=== PATIENT | female | born 1960 | race Caucasian/White ===

== ENCOUNTER 2018-03-29 21:59 | Emergency (ER) | payer MEDICARE, OTHER ==
[2018-03-29] MEDS: OXYMETAZOLINE 0.05% NASAL SPRAY 30ML BOTTLE. NS (23:03)
[2018-03-29 23:18] LABS: ADD MAN DIFF? NO
[2018-03-29 23:20] LABS: BASO # 0.2 x10^3/uL (0.0-0.2); BASO % 1 % (0-3); EOS # 0.3 x10^3/uL (0.0-0.7); EOS % 2 % (0-3); HEMATOCRIT 42.9 % (36.0-47.0); LYMPH # 2.6 x10^3/uL (1.0-4.8); LYMPH % 18 % (24-48); MEAN CORPUSCULAR HEMOGLOBIN 31 pg (25-35); MEAN CORPUSCULAR HGB CONC 35 g/dL (31-37); MEAN CORPUSCULAR VOLUME 90 fL (79-100); MONO # 1.1 x10^3/uL (0.0-1.1); MONO % 8 % (0-9); NEUT # 10.5 x10^3uL (1.8-7.7); NEUT % 71 % (31-73); PLATELET COUNT 317 x10^3/uL (140-400); RED BLOOD COUNT 4.77 x10^6/uL (3.50-5.40); RED CELL DISTRIBUTION WIDTH 13.5 % (11.5-14.5); WHITE BLOOD COUNT 14.7 x10^3/uL (4.0-11.0)
[2018-03-29 23:32] LABS: PROTHROMBIN TIME PATIENT 12.4 SEC (11.7-14.0)
[2018-03-29 23:33] LABS: ANION GAP 10 (6-14); BLOOD UREA NITROGEN 7 mg/dL (7-20); BUN/CREATININE RATIO 9 (6-20); CALCIUM 8.5 mg/dL (8.5-10.1); CARBON DIOXIDE 28 mmol/L (21-32); CHLORIDE 91 mmol/L (98-107); CREATININE 0.8 mg/dL (0.6-1.0); GFR 73.7; GLUCOSE 100 mg/dL (70-99); POTASSIUM 3.5 mmol/L (3.5-5.1); SODIUM 129 mmol/L (136-145)
[2018-03-29 23:39] LABS: ALBUMIN 2.8 g/dL (3.4-5.0); ALBUMIN/GLOBULIN RATIO 0.7 (1.0-1.7); ALK PHOS 109 U/L (46-116); ALT (SGPT) 25 U/L (14-59); AST (SGOT) 23 U/L (15-37); TOTAL BILIRUBIN 0.6 mg/dL (0.2-1.0); TOTAL PROTEIN 6.6 g/dL (6.4-8.2)
== END 2018-03-30 00:10 | disposition home or self-care (01) ==
LOC: ER 03-30 00:10
DX: R04.0 Epistaxis (principal); E11.9 Type 2 diabetes mellitus without complications; E78.00 Pure hypercholesterolemia, unspecified; F20.9 Schizophrenia, unspecified; I10 Essential (primary) hypertension; F43.10 Post-traumatic stress disorder, unspecified; Z95.1 Presence of aortocoronary bypass graft; Z88.0 Allergy status to penicillin; Z88.1 Allergy status to other antibiotic agents
CPT/HCPCS: 36415; 80053; 85025; 85610; 99284

== ENCOUNTER 2019-08-30 04:24 | Inpatient (IN) | payer MEDICARE ==
[~2019-08-30] VITALS: Ht 152.4 cm; Wt 74.4 kg
[~2019-08-30 04:24] MED LIST: ALPR0.254 PO; AMLO10TA8 PO; ASPI-630 PO; ASPI325T8 PO; ATOR20TA58 PO; BUPR100T8 PO; CALC600T4 PO; FERR325T3 PO; FISH1CAP PO; HALO2TAB PO; LEXAPRO20 MG PO; LOSA100T14 PO; METF500T16 PO; MULT-658 PO; TRAZ-86 PO; VITA-8 PO; ZIPR20CA3 PO; ZIPR60CA3 PO
--- NOTE | 2019-08-30 05:05 | RAD ---
EXAM: CT HEAD WITHOUT CONTRAST. HISTORY: Altered mental status. TECHNIQUE: Computed tomography of the head was performed without intravenous contrast. COMPARISON: 11/14/2016. FINDINGS: There is no intracranial hemorrhage. Hypoattenuation within the periventricular white matter indicates mild chronic microangiopathic change. Prominence of the lateral ventricles and hemispheric sulci indicates mild atrophy. The visualized paranasal sinuses appear clear. The orbits are unremarkable. The temporal bones are unremarkable. The calvarium reveals no suspicious lesions. There are atherosclerotic calcifications of the internal carotid arteries. IMPRESSION: 1. No acute intracranial findings. 2. Mild atrophy and chronic microangiopathic white matter change. *One or more of the following individualized dose reduction techniques were utilized for this examination: 1. Automated exposure control. 2. Adjustment of the mA and/or kV according to patient size. 3. Use of iterative reconstruction technique. Electronically signed by: Hazel Salinas MD (08/30/2019 5:03 AM) [facility]
--- NOTE | 2019-08-30 05:45 | RAD ---
EXAM: CHEST ONE VIEW. HISTORY: Altered mental status. COMPARISON: 11/14/2016. FINDINGS: A frontal view of the chest is obtained. There are changes of coronary artery bypass grafting. There are no confluent infiltrates. There is no pneumothorax or pleural effusion. The heart is moderately enlarged. There are atherosclerotic calcifications of the aorta. IMPRESSION: 1. Mild to moderate cardiomegaly. Electronically signed by: Hazel Salinas MD (08/30/2019 5:43 AM) [facility]
[2019-08-30 05:48] LABS: CALCIUM 9.8 mg/dL (8.5-10.1); CREATININE 0.9 mg/dL (0.6-1.0); GFR 64.1; POTASSIUM 3.3 mmol/L (3.5-5.1)
--- NOTE | 2019-08-30 05:52 | PHYS DOC ---
Past Medical History Past Medical History: Anxiety, Depression, Diabetes-Type II, High Cholesterol, Hypertension, Schizophrenia, Stroke, Other Additional Past Medical Histor: INVOLUNTARY MUSCLE MOVEMENT, CERVICAL CANCER, PTSD Past Surgical History: No Surgical History, Coronary Bypass Surgery Alcohol Use: None Drug Use: None Adult General Chief Complaint Chief Complaint: ALTERED [facility]AL [facility] HPI Patient is a 58-year-old female with anxiety, depression and post dramatic stress disorder who is also had a CVA in the past. Patient's son states she called him at 1 AM since she didn't feel right and he noted that she was having an increased difficulty talking. He states that 2 days ago he had a conversation with her that was normal but he noticed some changes yesterday. Patient is not cooperative with answering questions during the history taking.[] Review of Systems Review of Systems Constitutional: Denies fever or chills [] Eyes: Denies change in visual acuity, redness, or eye pain [] HENT: Denies nasal congestion or sore throat [] Respiratory: Denies cough or shortness of breath [] Cardiovascular: No additional information not addressed in HPI [] GI: Denies abdominal pain, nausea, vomiting, bloody stools or diarrhea [] : Denies dysuria or hematuria [] Musculoskeletal: Denies back pain or joint pain [] Integument: Denies rash or skin lesions [] Neurologic: Denies headache, focal weakness or sensory changes [] Endocrine: Denies polyuria or polydipsia [] All other systems were reviewed and found to be within normal limits, except as documented in this note. Current Medications Current Medications Current Medications Medications (Trade) Dose Ordered Sig/[facility] Start Time Stop Time Status Last Admin Dose Admin Acetaminophen (Tylenol) 650 mg PRN Q4HRS PRN 08/30/19 06:00 08/31/19 05:59 Ondansetron HCl (Zofran) 4 mg PRN Q8HRS PRN 08/30/19 06:00 08/31/19 05:59 Sodium Chloride 1,000 ml @ 125 mls/hr Q8H 08/30/19 06:00 08/31/19 05:59 Allergies Allergies Allergies Coded Allergies Type Severity Reaction Last Updated Verified Penicillins Allergy Intermediate 11/05/16 Yes doxycycline Allergy Intermediate 11/05/16 Yes tetracycline Allergy Intermediate 11/05/16 Yes Physical Exam Physical Exam Constitutional: Well developed, well nourished, no acute distress, non-toxic appearance. [] HENT: Normocephalic, atraumatic, bilateral external ears normal, oropharynx moist, no oral exudates, nose normal. [] Eyes: PERRLA, EOMI, conjunctiva normal, no discharge. [] Neck: Normal range of motion, no tenderness, supple, no stridor. [] Cardiovascular:Heart rate regular rhythm, no murmur [] Lungs & Thorax: Bilateral breath sounds clear to auscultation [] Abdomen: Bowel sounds normal, soft, no tenderness, no masses, no pulsatile masses. [] Skin: Warm, dry, no erythema, no rash. [] Back: No tenderness, no CVA tenderness. [] Extremities: No tenderness, no cyanosis, no clubbing, ROM intact, no edema. [] Neurologic: Patient is awake and alert with a subtle expressive aphasia. [] Psychologic: Very flat affect[] Current Patient Data Vital Signs Vital Signs Date Time Temp Pulse Resp B/P (MAP) Pulse Ox O2 Delivery O2 Flow Rate FiO2 08/30/19 04:30 98.0 86 20 156/69 (98) 96 Room Air 98.0 Lab Values Laboratory Tests Test 08/30/19 04:55 08/30/19 05:05 Glucose (Fingerstick) 136 mg/dL (70-99) H Sodium Level 133 mmol/L (136-145) L Potassium Level 3.3 mmol/L (3.5-5.1) L Chloride Level 92 mmol/L (98-107) L Carbon Dioxide Level 26 mmol/L (21-32) Anion Gap 15 (6-14) H Blood Urea Nitrogen 6 mg/dL (7-20) L Creatinine 0.9 mg/dL (0.6-1.0) Estimated GFR (Cockcroft-Gault) 64.1 BUN/Creatinine Ratio 7 (6-20) Glucose Level 130 mg/dL (70-99) H Lactic Acid Level 1.2 mmol/L (0.4-2.0) Calcium Level 9.8 mg/dL (8.5-10.1) Magnesium Level 1.3 mg/dL (1.8-2.4) L Total Bilirubin 0.5 mg/dL (0.2-1.0) Aspartate Amino Transferase (AST) 20 U/L (15-37) Alanine Aminotransferase (ALT) 18 U/L (14-59) Alkaline Phosphatase 115 U/L (46-116) Troponin I Quantitative < 0.017 ng/mL (0.000-0.055) Total Protein 6.5 g/dL (6.4-8.2) Albumin 3.2 g/dL (3.4-5.0) L Albumin/Globulin Ratio 1.0 (1.0-1.7) Lipase 126 U/L (73-393) Thyroid Stimulating Hormone (TSH) 3.082 uIU/mL (0.358-3.74) Ethyl Alcohol Level < 10 mg/dL (0-10) Laboratory Tests 08/30/19 05:05 EKG EKG [] Interpretation Time: EKG: Normal sinus rhythm rate of [address]-T changes Radiology/Procedures Radiology/Procedures [PROCEDURE: CHEST AP ONLY EXAM: CHEST ONE VIEW. HISTORY: Altered mental status. COMPARISON: 11/14/2016. FINDINGS: A frontal view of the chest is obtained. There are changes of coronary artery bypass grafting. There are no confluent infiltrates. There is no pneumothorax or pleural effusion. The heart is moderately enlarged. There are atherosclerotic calcifications of the aorta. IMPRESSION: 1. Mild to moderate cardiomegaly.] Impressions: PROCEDURE: CT HEAD WO CONTRAST EXAM: CT HEAD WITHOUT CONTRAST. HISTORY: Altered mental status. TECHNIQUE: Computed tomography of the head was performed without intravenous contrast. COMPARISON: 11/14/2016. FINDINGS: There is no intracranial hemorrhage. Hypoattenuation within the periventricular white matter indicates mild chronic microangiopathic change. Prominence of the lateral ventricles and hemispheric sulci indicates mild atrophy. The visualized paranasal sinuses appear clear. The orbits are unremarkable. The temporal bones are unremarkable. The calvarium reveals no suspicious lesions. There are atherosclerotic calcifications of the internal carotid arteries. IMPRESSION: 1. No acute intracranial findings. 2. Mild atrophy and chronic microangiopathic white matter change. Course & Med Decision Making Course & Med Decision Making Pertinent Labs and Imaging studies reviewed. (See chart for details) [ED course: Evaluation reveals a 58-year-old female with symptoms likely related to anxiety however she does have a component of expressive aphasia which is concerning for new subtle ischemic CVA. Her CT scan was negative. I would like to put the patient in the hospital for MRI and further workup. I've talked with Dr. Giordano who agrees to accept patient for admission.] Dragon Disclaimer Dragon Disclaimer This electronic medical record was generated, in whole or in part, using a voice recognition dictation system. Departure Departure Impression: Primary Impression: Ischemic stroke Additional Impression: AMS (altered mental status) Disposition: 09 ADMITTED INPATIENT Condition: STABLE Referrals: NO PCP (PCP) Problem Qualifiers Additional Impression: AMS (altered mental status) Altered mental status type: unspecified Qualified Codes: R41.82 - Altered mental status, unspecified ALMA ROSA ROMAN DO Aug 30, 2019 05:52
[2019-08-30 05:59] LABS: ALBUMIN 3.2 g/dL (3.4-5.0); MAGNESIUM 1.3 mg/dL (1.8-2.4); TOTAL BILIRUBIN 0.5 mg/dL (0.2-1.0); TOTAL PROTEIN 6.5 g/dL (6.4-8.2)
[2019-08-30] MEDS ORDERED: ACETAMINOPHEN 325 MG TABLET. PO PRN (06:00)
[2019-08-30] MEDS ORDERED: ONDANSETRON PF 4 MG/2 ML VIAL. IV PRN (06:00)
[2019-08-30 06:01] LABS: BILIRUBIN,URINE NEGATIVE (NEG); CLARITY,URINE CLEAR; COLOR,URINE YELLOW; NITRITE,URINE NEGATIVE (NEG); PROTEIN,URINE >=300 mg/dL (NEG-TRACE)
[2019-08-30 06:04] LABS: BASO # 0.1 x10^3/uL (0.0-0.2); BASO % 1 % (0-3); EOS # 0.1 x10^3/uL (0.0-0.7); EOS % 1 % (0-3); HEMATOCRIT 44.6 % (36.0-47.0); HEMOGLOBIN 15.2 g/dL (12.0-15.5); LYMPH # 1.2 x10^3/uL (1.0-4.8); LYMPH % 12 % (24-48); MEAN CORPUSCULAR HEMOGLOBIN 30 pg (25-35); MEAN CORPUSCULAR HGB CONC 34 g/dL (31-37); MEAN CORPUSCULAR VOLUME 89 fL (79-100); MONO # 0.7 x10^3/uL (0.0-1.1); MONO % 7 % (0-9); NEUT % 79 % (31-73); PLATELET COUNT 363 x10^3/uL (140-400); RED CELL DISTRIBUTION WIDTH 14.6 % (11.5-14.5); WHITE BLOOD COUNT 10.1 x10^3/uL (4.0-11.0)
[2019-08-30 06:11] LABS: BARBITURATES NEG (NEG); BENZODIAZEPINES NEG (NEG); CANNABINOIDS NEG (NEG); COCAINE NEG (NEG); METHADONE NEG (NEG); OPIATES NEG (NEG); PHENCYCLIDINE NEG (NEG)
[2019-08-30 06:13] LABS: AMPHETAMINE/METHAMPHETAMINE NEG (NEG)
[2019-08-30 06:18] LABS: BACTERIA,URINE FEW /HPF (0-FEW); RBC,URINE 0 /HPF (0-2); SQUAMOUS EPITHELIAL CELL,UR FEW /LPF
--- NOTE | 2019-08-30 06:48 | EKG ---
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
[2019-08-30 07:15] VITALS: BP 163/79
--- NOTE | 2019-08-30 07:15 | PDOC1 ---
History and Physical Date of Admission Date of Admission DATE: 08/30/19 TIME: 07:14 Identification/Chief Complaint Chief Complaint SEEN IN ER, 58-year-old female with anxiety, depression and post dramatic stress disorder who is also had a CVA in the past. Patient's son states she called him at 1 AM since she didn't feel right and he noted that she was having an increased difficulty talking. ADMITTED WITH ALTERED MENTATION, NOT ABLE TO NAME CORRECT DAY, Normally drives, shops etc, new on set confusion, no tick or known mosquito bites according to daughter in room Past Medical History Past Medical History Past Medical History Past Medical History: Anxiety, Depression, Diabetes-Type II, High Cholesterol, Hypertension, Schizophrenia, Stroke, Other Additional Past Medical Histor: INVOLUNTARY MUSCLE MOVEMENT, CERVICAL CANCER, PTSD Past Surgical History: No Surgical History, Coronary Bypass Surgery Alcohol Use: None Drug Use: None fhx htn PAST MEDICAL HISTORY: Tobacco abuse, TIAs, hyperlipidemia, hypertension, osteoporosis, diabetes. ALLERGIES: PENICILLIN, DOXYCYCLINE, AND TETRACYCLINE. FAMILY HISTORY: Coronary artery disease. SOCIAL HISTORY: She does not drink or take drugs. Family History Family History: High Cholestrol, Hypertension Social History Smoke: No ALCOHOL: none Drugs: None Current Problem List Problem List Problems Medical Problems: (1) Ischemic stroke Status: Acute Current Medications Current Medications Current Medications Ondansetron HCl (Zofran) 4 mg PRN Q8HRS PRN IV NAUSEA/VOMITING 1ST CHOICE; Start 08/30/19 at 06:00; Stop 08/31/19 at 05:59 Sodium Chloride 1,000 ml @ 125 mls/hr Q8H IV ; Start 08/30/19 at 06:00; Stop 08/31/19 at 05:59 Acetaminophen (Tylenol) 650 mg PRN Q4HRS PRN PO FEVER; Start 08/30/19 at 06:00; Stop 08/31/19 at 05:59 Active Scripts Active Aspirin 325 Mg Tablet 1 Tab PO DAILY Reported Ziprasidone Hcl 20 Mg Capsule 20 Mg PO HS Lexapro (Escitalopram Oxalate) 20 Mg Tablet 1 Tab PO DAILY Bupropion Hcl Sr (Bupropion Hcl) 100 Mg Tablet.er 100 Mg PO HS Haloperidol 2 Mg Tablet 5 Tab PO DAILY Ziprasidone Hcl 60 Mg Capsule 120 Mg PO HS Trazodone Hcl 100 Mg Tablet 150 Mg PO HS Fish Oil 1,200 Mg Fish Oil (Fish Oil/Dha/Epa) 1 Each Capsule 2 Each PO DAILY Centrum Silver Tablet (Multivits-Min/Fa/Lycopene/Lut) 1 Each Tablet 1 Each PO DAILY Alprazolam 0.25 Mg Tablet 3 Tab PO TID Ferrous Sulfate 325 Mg Tablet.dr 325 Mg PO Atorvastatin Calcium 20 Mg Tablet 20 Mg PO HS Calcium (Calcium Carbonate) 600 Mg Tablet 600 Mg PO DAILY Metformin Hcl 500 Mg Tablet 2 Tab PO DAILY Losartan Potassium 100 Mg Tablet 100 Mg PO DAILY Vitamin E (Vitamin E Mixed) 400 Unit Capsule 400 Unit PO DAILY Amlodipine Besylate 10 Mg Tablet 10 Mg PO DAILY Allergies Allergies: Coded Allergies: Penicillins (Verified Allergy, Intermediate, 11/05/16) doxycycline (Verified Allergy, Intermediate, 11/05/16) tetracycline (Verified Allergy, Intermediate, 11/05/16) ROS Review of System Review of Systems Review of Systems Constitutional: Denies fever or chills [] Eyes: Denies change in visual acuity, redness, or eye pain [] HENT: Denies nasal congestion or sore throat [] Respiratory: Denies cough or shortness of breath [] Cardiovascular: No additional information not addressed in HPI [] GI: Denies abdominal pain, nausea, vomiting, bloody stools or diarrhea [] : Denies dysuria or hematuria [] Musculoskeletal: Denies back pain or joint pain [] Integument: Denies rash or skin lesions [] Neurologic: Denies headache, focal weakness or sensory changes [] Endocrine: Denies polyuria or polydipsia [] 14 PT systems were reviewed and found to be within normal limits, except as documented General: YES: Fatigue PSYCHOLOGICAL ROS: YES: Disorientation, Memory difficulties Hematological and Lymphatic: No: Bleeding Problems, Blood Clots, Blood Transfusions, Brusing, Night Sweats, Pallor, Swollen Lymph Nodes, Other Respiratory: No: Cough, Hemoptysis, Orthopnea, Pleuritic Pain, Shortness of breath, SOB with excertion, Sputum Changes, Stridor, Tachypnea, Wheezing, Other Neurological: Yes Confusion Physical Exam Physical Exam Physical Exam Physical Exam Constitutional: Well developed, well nourished, no acute distress, non-toxic appearance. [] HENT: Normocephalic, atraumatic, bilateral external ears normal, oropharynx moist, no oral exudates, nose normal. [] Eyes: PERRLA, EOMI, conjunctiva normal, no discharge. [] Neck: Normal range of motion, no tenderness, supple, no stridor. [] Cardiovascular:Heart rate regular rhythm, no murmur [] Lungs & Thorax: Bilateral breath sounds clear to auscultation [] Abdomen: Bowel sounds normal, soft, no tenderness, no masses, no pulsatile sammi s. [] Skin: Warm, dry, no erythema, no rash. [] Back: No tenderness, no CVA tenderness. [] Extremities: No tenderness, no cyanosis, no clubbing, ROM intact, no edema. [] Neurologic: Patient is awake and alert with a subtle expressive aphasia. [] Psychologic: Very flat affect[] General: Cooperative, No acute distress HEENT: Atraumatic, EOMI, Mucous membr. moist/pink Lungs: Clear to auscultation Breasts: Not examined Abdomen: Normal bowel sounds, Soft Rectal Exam: not examined Extremities: No cyanosis, No edema Neuro: Cranial nerves 3-12 NL Vitals Vitals Vital Signs Date Time Temp Pulse Resp B/P (MAP) Pulse Ox O2 Delivery O2 Flow Rate FiO2 08/30/19 06:17 98 21 95 08/30/19 04:30 98.0 156/69 (98) Room Air 98.0 Labs Labs Laboratory Tests Test 08/30/19 04:55 08/30/19 05:05 08/30/19 05:48 Glucose (Fingerstick) 136 mg/dL (70-99) White Blood Count 10.1 x10^3/uL (4.0-11.0) Red Blood Count 5.00 x10^6/uL (3.50-5.40) Hemoglobin 15.2 g/dL (12.0-15.5) Hematocrit 44.6 % (36.0-47.0) Mean Corpuscular Volume 89 fL (79-100) Mean Corpuscular Hemoglobin 30 pg (25-35) Mean Corpuscular Hemoglobin Concent 34 g/dL (31-37) Red Cell Distribution Width 14.6 % (11.5-14.5) Platelet Count 363 x10^3/uL (140-400) Neutrophils (%) (Auto) 79 % (31-73) Lymphocytes (%) (Auto) 12 % (24-48) Monocytes (%) (Auto) 7 % (0-9) Eosinophils (%) (Auto) 1 % (0-3) Basophils (%) (Auto) 1 % (0-3) Neutrophils # (Auto) 8.0 x10^3/uL (1.8-7.7) Lymphocytes # (Auto) 1.2 x10^3/uL (1.0-4.8) Monocytes # (Auto) 0.7 x10^3/uL (0.0-1.1) Eosinophils # (Auto) 0.1 x10^3/uL (0.0-0.7) Basophils # (Auto) 0.1 x10^3/uL (0.0-0.2) Sodium Level 133 mmol/L (136-145) Potassium Level 3.3 mmol/L (3.5-5.1) Chloride Level 92 mmol/L (98-107) Carbon Dioxide Level 26 mmol/L (21-32) Anion Gap 15 (6-14) Blood Urea Nitrogen 6 mg/dL (7-20) Creatinine 0.9 mg/dL (0.6-1.0) Estimated GFR (Cockcroft-Gault) 64.1 BUN/Creatinine Ratio 7 (6-20) Glucose Level 130 mg/dL (70-99) Lactic Acid Level 1.2 mmol/L (0.4-2.0) Calcium Level 9.8 mg/dL (8.5-10.1) Magnesium Level 1.3 mg/dL (1.8-2.4) Total Bilirubin 0.5 mg/dL (0.2-1.0) Aspartate Amino Transf (AST/SGOT) 20 U/L (15-37) Alanine Aminotransferase (ALT/SGPT) 18 U/L (14-59) Alkaline Phosphatase 115 U/L (46-116) Troponin I Quantitative < 0.017 ng/mL (0.000-0.055) Total Protein 6.5 g/dL (6.4-8.2) Albumin 3.2 g/dL (3.4-5.0) Albumin/Globulin Ratio 1.0 (1.0-1.7) Lipase 126 U/L (73-393) Thyroid Stimulating Hormone (TSH) 3.082 uIU/mL (0.358-3.74) Ethyl Alcohol Level < 10 mg/dL (0-10) Urine Collection Type Void Urine Color Yellow Urine Clarity Clear Urine pH 7.0 Urine Specific [place] <=1.005 Urine Protein >=300 mg/dL (NEG-TRACE) Urine Glucose (UA) Negative mg/dL (NEG) Urine Ketones (Stick) Trace mg/dL (NEG) Urine Blood Small (NEG) Urine Nitrite Negative (NEG) Urine Bilirubin Negative (NEG) Urine Urobilinogen Dipstick 1.0 mg/dL (0.2 mg/dL) Urine Leukocyte Esterase Small (NEG) Urine RBC 0 /HPF (0-2) Urine WBC 1-4 /HPF (0-4) Urine Squamous Epithelial Cells Few /LPF Urine Bacteria Few /HPF (0-FEW) Urine Opiates Screen Neg (NEG) Urine Methadone Screen Neg (NEG) Urine Barbiturates Neg (NEG) Urine Phencyclidine Screen Neg (NEG) Urine Amphetamine/Methamphetamine Neg (NEG) Urine Benzodiazepines Screen Neg (NEG) Urine Cocaine Screen Neg (NEG) Urine Cannabinoids Screen Neg (NEG) Urine Ethyl Alcohol Neg (NEG) Laboratory Tests Test 08/30/19 04:55 08/30/19 05:05 08/30/19 05:48 Glucose (Fingerstick) 136 mg/dL (70-99) White Blood Count 10.1 x10^3/uL (4.0-11.0) Red Blood Count 5.00 x10^6/uL (3.50-5.40) Hemoglobin 15.2 g/dL (12.0-15.5) Hematocrit 44.6 % (36.0-47.0) Mean Corpuscular Volume 89 fL (79-100) Mean Corpuscular Hemoglobin 30 pg (25-35) Mean Corpuscular Hemoglobin Concent 34 g/dL (31-37) Red Cell Distribution Width 14.6 % (11.5-14.5) Platelet Count 363 x10^3/uL (140-400) Neutrophils (%) (Auto) 79 % (31-73) Lymphocytes (%) (Auto) 12 % (24-48) Monocytes (%) (Auto) 7 % (0-9) Eosinophils (%) (Auto) 1 % (0-3) Basophils (%) (Auto) 1 % (0-3) Neutrophils # (Auto) 8.0 x10^3/uL (1.8-7.7) Lymphocytes # (Auto) 1.2 x10^3/uL (1.0-4.8) Monocytes # (Auto) 0.7 x10^3/uL (0.0-1.1) Eosinophils # (Auto) 0.1 x10^3/uL (0.0-0.7) Basophils # (Auto) 0.1 x10^3/uL (0.0-0.2) Sodium Level 133 mmol/L (136-145) Potassium Level 3.3 mmol/L (3.5-5.1) Chloride Level 92 mmol/L (98-107) Carbon Dioxide Level 26 mmol/L (21-32) Anion Gap 15 (6-14) Blood Urea Nitrogen 6 mg/dL (7-20) Creatinine 0.9 mg/dL (0.6-1.0) Estimated GFR (Cockcroft-Gault) 64.1 BUN/Creatinine Ratio 7 (6-20) Glucose Level 130 mg/dL (70-99) Lactic Acid Level 1.2 mmol/L (0.4-2.0) Calcium Level 9.8 mg/dL (8.5-10.1) Magnesium Level 1.3 mg/dL (1.8-2.4) Total Bilirubin 0.5 mg/dL (0.2-1.0) Aspartate Amino Transf (AST/SGOT) 20 U/L (15-37) Alanine Aminotransferase (ALT/SGPT) 18 U/L (14-59) Alkaline Phosphatase 115 U/L (46-116) Troponin I Quantitative < 0.017 ng/mL (0.000-0.055) Total Protein 6.5 g/dL (6.4-8.2) Albumin 3.2 g/dL (3.4-5.0) Albumin/Globulin Ratio 1.0 (1.0-1.7) Lipase 126 U/L (73-393) Thyroid Stimulating Hormone (TSH) 3.082 uIU/mL (0.358-3.74) Ethyl Alcohol Level < 10 mg/dL (0-10) Urine Collection Type Void Urine Color Yellow Urine Clarity Clear Urine pH 7.0 Urine Specific [place] <=1.005 Urine Protein >=300 mg/dL (NEG-TRACE) Urine Glucose (UA) Negative mg/dL (NEG) Urine Ketones (Stick) Trace mg/dL (NEG) Urine Blood Small (NEG) Urine Nitrite Negative (NEG) Urine Bilirubin Negative (NEG) Urine Urobilinogen Dipstick 1.0 mg/dL (0.2 mg/dL) Urine Leukocyte Esterase Small (NEG) Urine RBC 0 /HPF (0-2) Urine WBC 1-4 /HPF (0-4) Urine Squamous Epithelial Cells Few /LPF Urine Bacteria Few /HPF (0-FEW) Urine Opiates Screen Neg (NEG) Urine Methadone Screen Neg (NEG) Urine Barbiturates Neg (NEG) Urine Phencyclidine Screen Neg (NEG) Urine Amphetamine/Methamphetamine Neg (NEG) Urine Benzodiazepines Screen Neg (NEG) Urine Cocaine Screen Neg (NEG) Urine Cannabinoids Screen Neg (NEG) Urine Ethyl Alcohol Neg (NEG) Images Images BRAIN W/O CONTRAST Date: 08/30/2019 5:52 AM Indication: CVA. Altered mental status. Comparison: MRI 11/14/2016. CT 08/30/2019. Technique: Multiplanar multisequence MRI of the brain was performed without intravenous contrast using the standard protocol. Findings: Patient motion artifact degrades image quality on some sequences. No acute infarct. No acute hemorrhage. The ventricles are normal in size and configuration without hydrocephalus. Mild scattered FLAIR hyperintensities in the subcortical and periventricular deep white matter, a nonspecific finding, most commonly seen with chronic small vessel ischemic disease. Mild generalized cerebral and cerebellar volume loss. The scalp and calvarium are normal. The pituitary and sella are normal. No Chiari malformation. The visualized upper cervical spine is normal. The visualized orbits and globes are normal. The visualized paranasal sinuses are clear. The mastoid air cells are clear. Normal flow voids within the vertebral, basilar, and internal carotid arteries indicating patency. IMPRESSION: No acute infarct, acute hemorrhage, mass, or hydrocephalus. Electronically signed by: Francisco Coronel MD (08/30/2019 9:56 AM) [facility] DICTATED and SIGNED BY: FRANCISCO CORONEL MD DATE: 08/30/19 0956 VTE Prophylaxis Ordered VTE Prophylaxis Devices: Yes VTE Pharmacological Prophylaxi: Yes Assessment/Plan Assessment/Plan IMPRESSION: ACUTE ALTERED MENTATION acute metabolic encephalopathy possible uti No acute infarct, acute hemorrhage, mass, or hydrocephalus. Mild CEREBRAL atrophy and chronic microangiopathic white matter change. ON CT HEAD OBESITY hx schizophrenia, possible acute psychosis ADMIT NEUROLOGY CONSULT NEUROCHECKS Q 4 HRS ADMIT 2 MN TELE EEG uds blood culture urine culture dvt prophylaxis hold geodon and sedating meds IV CIPRO 200MG BID 74 min pt exam, chart review, > 50% of time spent with exam, chart review, pt care coordination MAXIME ALMODOVAR MD Aug 30, 2019 07:15
[2019-08-30] MEDS ORDERED: FISH1CAP PO (09:36)
[2019-08-30] MEDS ORDERED: BUPR150T15 PO (09:36)
[2019-08-30] MEDS ORDERED: CARV6.253 PO (09:36)
[2019-08-30] MEDS ORDERED: RISP0.5T3 PO (09:36)
[2019-08-30] MEDS ORDERED: AMIT25TA PO (09:36)
[2019-08-30] MEDS ORDERED: HALO5TAB PO (09:36)
--- NOTE | 2019-08-30 09:59 | RAD ---
BRAIN W/O CONTRAST Date: 08/30/2019 5:52 AM Indication: CVA. Altered mental status. Comparison: MRI 11/14/2016. CT 08/30/2019. Technique: Multiplanar multisequence MRI of the brain was performed without intravenous contrast using the standard protocol. Findings: Patient motion artifact degrades image quality on some sequences. No acute infarct. No acute hemorrhage. The ventricles are normal in size and configuration without hydrocephalus. Mild scattered FLAIR hyperintensities in the subcortical and periventricular deep white matter, a nonspecific finding, most commonly seen with chronic small vessel ischemic disease. Mild generalized cerebral and cerebellar volume loss. The scalp and calvarium are normal. The pituitary and sella are normal. No Chiari malformation. The visualized upper cervical spine is normal. The visualized orbits and globes are normal. The visualized paranasal sinuses are clear. The mastoid air cells are clear. Normal flow voids within the vertebral, basilar, and internal carotid arteries indicating patency. IMPRESSION: No acute infarct, acute hemorrhage, mass, or hydrocephalus. Electronically signed by: Julio Herrera MD (08/30/2019 9:56 AM) [facility]
[2019-08-30 11:03] VITALS: BP 156/71
[2019-08-30] MEDS ORDERED: POTASSIUM CHLORIDE 20 MEQ TABLET.ER. PO ONE (13:00)
[2019-08-30 15:15] VITALS: BP 153/96
[2019-08-30] MEDS: OMEGA-3 FATTY ACIDS/FISH OIL 1,000 MG CAPSULE. PO SCH ×2 (15:26→21:22)
[2019-08-30] MEDS: VITAMIN E 200 UNIT CAPSULE. PO SCH (15:26)
[2019-08-30] MEDS: amLODIPine BESYLATE 10 MG TABLET PO SCH (15:27)
[2019-08-30] MEDS: IRON POLYSACCHARIDE COMPLEX 150 MG CAPSULE PO SCH (15:27)
[2019-08-30] MEDS: ASPIRIN 325 MG TABLET PO SCH (15:27)
[2019-08-30] MEDS: CALCIUM CARBONATE 500 MG TABLET PO SCH (15:28)
[2019-08-30] MEDS: MULTIVITAMIN with MINERAL TABLET. PO SCH (15:28)
[2019-08-30] MEDS: LOSARTAN POTASSIUM 50 MG TABLET. PO SCH (15:28)
[2019-08-30] MEDS: IV NORMAL SALINE 1000ML BAG 1,000 ML IV SCH (15:29)
[2019-08-30] MEDS: CIPROFLOXACIN 200MG PREMIX 100 ML IV SCH ×2 (15:29→21:22)
--- NOTE | 2019-08-30 17:49 | PDOC2 ---
NEUROLOGY CONSULT Date of Admission Date of Admission DATE: 08/30/19 TIME: 17:34 Reason for Consult Reason for Consult: IMPRESSION: Mental status changes. Confusion. Difficult talking. DM. HTN. HLD. Old CVA.. Smoking. Depression. Schizophrenia. No evidence of acute CVA this time. RECOMMENDATIONS/PLAN: EEG. Lab: see orders. Continue ASA 325 mg daily. Continue Lipitor HS. Treat medical diseases. HISTORY OF THE PRESENT ILLNESS: This is a 58-year-old female with anxiety, depression and post dramatic stress disorder and CVA in the past. Her son reported that patient called him at 1 AM stating she didn't feel right. He noted that she was having an increased difficulty talking. She was seen in the ER of [facility] and was found not able to name correctly with MS changes. No focalized sensory or motor deficits. Past Medical History Anxiety, Depression, Diabetes-Type II, High Cholesterol, Hypertension, Schizophrenia, Stroke, INVOLUNTARY MUSCLE MOVEMENT, CERVICAL CANCER, PTSD. PAST SURGERY HISTORY: Coronary Bypass Surgery ALLERGIES: PENICILLIN, DOXYCYCLINE, AND TETRACYCLINE. FAMILY HISTORY: Coronary artery disease. MEDICATIONS: Refer to [facility] SOCIAL HISTORY: Lives at home. Denies drinking and illicit drug use. She smokes 2 pack of cigarettes a day for many years. REVIEW OF SYSTEMS: Constitutional: No malnutrition, weight loss, cachexia. Head: No traumatic brain or head injury. Skin: No edema, or rash. Ear: No infection. Eyes: No vision loss or color blindness. Nose: No bleeding or purulent discharges. Hearing: No hearing decrease. Neck: No injury. Breast: No history of cancer, masses,or discharges. Cardiac: s/p CABG, HTN, HLD. Pulmonary: Smoking. GI: No GI ulcer, GI bleeding. Urinary/genital: UTI. Endocrinologic: Diabetes Mellitus. Skeletomuscular: No muscular atrophy. Neurological: see HP. Psychiatric: Denies drug use/abuse. Otherwise, not -azurv review of systems. PHYSICAL EXAMINATION: General appearance is in subacute distress. HEENT: Normocephalic and nontraumatic. Eyes, nose, ears, and throat are unremarkable. Neck is supple. No lymphadenopathy. No crepitus. Cardiovascular: S1, S2, regular rate and rhythm. Pulmonary: Clear to auscultation bilaterally. Abdomen: Bowel sounds are positive. Extremities: No rash, lesions, or edema. No restriction of range of motion NEUROLOGICAL EXAMINATION: Awake. Not oriented to time, place and person. PERRL. EOMI. CN: no focal findings. Muscle tone: within normal. Muscle strength: 5 DTR: 2 Plantar reflex: Flexor response bilaterally Gait: not examined in bed. Sensory exam: no abnormal findings. No cerebellar signs elicited. F-T-N test fine. Current Medications Current Medications Current Medications Ondansetron HCl (Zofran) 4 mg PRN Q8HRS PRN IV NAUSEA/VOMITING 1ST CHOICE; Start 08/30/19 at 06:00; Stop 08/31/19 at 05:59 Sodium Chloride 1,000 ml @ 125 mls/hr Q8H IV Last administered on 08/30/19at 15:29; Start 08/30/19 at 06:00; Stop 08/31/19 at 05:59 Acetaminophen (Tylenol) 650 mg PRN Q4HRS PRN PO FEVER; Start 08/30/19 at 06:00; Stop 08/31/19 at 05:59 Amlodipine Besylate (Norvasc) 10 mg DAILY PO Last administered on 08/30/19at 15:27; Start 08/30/19 at 13:30 Aspirin (Lauren Aspirin) 325 mg DAILY PO Last administered on 08/30/19at 15:27; Start 08/30/19 at 14:00 Atorvastatin Calcium (Lipitor) 20 mg HS PO ; Start 08/30/19 at 21:00 Bupropion HCl (Wellbutrin Xl) 150 mg HS PO ; Start 08/30/19 at 21:00 Carvedilol (Coreg) 6.25 mg BIDWMEALS PO ; Start 08/30/19 at 17:00 Ziprasidone (Geodon) 20 mg HS PO ; Start 08/30/19 at 21:00 Calcium Carbonate/ Glycine (Oscal) 500 mg DAILY PO Last administered on 08/30/19at 15:28; Start 08/30/19 at 14:00 Fish Oil (Fish Oil) 1,000 mg TID PO Last administered on 08/30/19at 15:26; Start 08/30/19 at 14:00 Non-Formulary Medication (Fish Oil/Dha/ Epa (Fish Oil 1,200 Mg Fish Oil)) 2 each DAILY PO ; Start 08/31/19 at 09:00; Stop 08/30/19 at 12:52; Status DC Losartan Potassium (Cozaar) 100 mg DAILY PO Last administered on 08/30/19at 15:28; Start 08/30/19 at 14:00 Multivitamins (Thera M Plus) 1 tab DAILY PO Last administered on 08/30/19at 15:28; Start 08/30/19 at 14:00 Vitamin E 400 unit DAILY PO Last administered on 08/30/19at 15:26; Start 08/30/19 at 14:00 Polysaccharide Iron Complex (Niferex 150) 150 mg DAILY PO Last administered on 08/30/19at 15:27; Start 08/30/19 at 14:00 Ciprofloxacin/ Dextrose 100 ml @ 100 mls/hr Q12HR IV Last administered on 08/30/19at 15:29; Start 08/30/19 at 13:00 Potassium Chloride (Klor-Con) 40 meq 1X ONCE PO Last administered on 08/30/19at 15:27; Start 08/30/19 at 13:00; Stop 08/30/19 at 13:01; Status DC Potassium Chloride (Klor-Con) 20 meq DAILYWBKFT PO ; Start 08/31/19 at 08:00 Lactobacillus Rhamnosus (Culturelle) 1 cap BID PO ; Start 08/30/19 at 21:00 Active Scripts Active Aspirin 325 Mg Tablet 1 Tab PO DAILY Reported Amitriptyline Hcl 25 Mg Tablet 1 Tab PO QHS Risperidone 0.5 Mg Tablet 1 Tab PO DAILY Carvedilol 6.25 Mg Tablet 6.25 Mg PO BID Fish Oil 1,200 Mg Fish Oil (Fish Oil/Dha/Epa) 1 Each Capsule 1 Each PO TID Haloperidol 5 Mg Tablet 3 Tab PO DAILY Wellbutrin Xl (Bupropion Hcl) 150 Mg Tab.er.24h 1 Tab PO HS Ziprasidone Hcl 20 Mg Capsule 20 Mg PO HS Ziprasidone Hcl 60 Mg Capsule 120 Mg PO HS Trazodone Hcl 100 Mg Tablet 150 Mg PO HS Fish Oil 1,200 Mg Fish Oil (Fish Oil/Dha/Epa) 1 Each Capsule 2 Each PO DAILY Centrum Silver Tablet (Multivits-Min/Fa/Lycopene/Lut) 1 Each Tablet 1 Each PO DAILY Alprazolam 0.25 Mg Tablet 3 Tab PO TID Ferrous Sulfate 325 Mg Tablet.dr 325 Mg PO Atorvastatin Calcium 20 Mg Tablet 20 Mg PO HS Calcium (Calcium Carbonate) 600 Mg Tablet 600 Mg PO DAILY Metformin Hcl 500 Mg Tablet 2 Tab PO DAILY Losartan Potassium 100 Mg Tablet 100 Mg PO DAILY Vitamin E (Vitamin E Mixed) 400 Unit Capsule 400 Unit PO DAILY Amlodipine Besylate 10 Mg Tablet 10 Mg PO DAILY Allergies Allergies: Allergies Coded Allergies Type Severity Reaction Last Updated Verified Penicillins Allergy Intermediate 11/05/16 Yes doxycycline Allergy Intermediate 11/05/16 Yes tetracycline Allergy Intermediate 11/05/16 Yes ROS Review of System The patient denies any associated fevers, chills, headache, ear pain, rhinorrhea, sore throat, stiff neck, productive cough, chest pain, shortness of breath, back or flank pain, abdominal pain, nausea, vomiting, diarrhea, constipation, dysuria, rash, numbness, weakness, tingling, incontinence, difficulty ambulating, or diaphoresis. Physical Exam Physical Exam General: Well developed, well nourished, no acute distress, well appearing HEENT: Pupils equally round and reactive to light, EOMI, no discharge, normal conjunctiva Neck: Supple, no nuchal rigidity, no JVD, trachea midline, no tenderness Cardiac: RRR, no murmurs, no gallops, no rubs Chest/Lungs: CTAB, no wheeze, no rhonchi, no crackles Abdomen: soft, non-distended, no guarding, no peritoneal signs, non-tender Back: No tenderness Extremities: no edema, pulses intact, non-tender,capillary refill <3 sec bilateral upper and lower extremities, Neuro: Alert and oriented x 4, no focal deficits, normal speech Vitals Vitals: Vital Signs Date Time Temp Pulse Resp B/P (MAP) Pulse Ox O2 Delivery O2 Flow Rate FiO2 08/30/19 15:28 89 156/71 08/30/19 15:15 98.5 18 96 Room Air 98.5 Labs Labs Laboratory Tests Test 08/30/19 04:55 08/30/19 05:05 08/30/19 05:48 Glucose (Fingerstick) 136 mg/dL (70-99) White Blood Count 10.1 x10^3/uL (4.0-11.0) Red Blood Count 5.00 x10^6/uL (3.50-5.40) Hemoglobin 15.2 g/dL (12.0-15.5) Hematocrit 44.6 % (36.0-47.0) Mean Corpuscular Volume 89 fL (79-100) Mean Corpuscular Hemoglobin 30 pg (25-35) Mean Corpuscular Hemoglobin Concent 34 g/dL (31-37) Red Cell Distribution Width 14.6 % (11.5-14.5) Platelet Count 363 x10^3/uL (140-400) Neutrophils (%) (Auto) 79 % (31-73) Lymphocytes (%) (Auto) 12 % (24-48) Monocytes (%) (Auto) 7 % (0-9) Eosinophils (%) (Auto) 1 % (0-3) Basophils (%) (Auto) 1 % (0-3) Neutrophils # (Auto) 8.0 x10^3/uL (1.8-7.7) Lymphocytes # (Auto) 1.2 x10^3/uL (1.0-4.8) Monocytes # (Auto) 0.7 x10^3/uL (0.0-1.1) Eosinophils # (Auto) 0.1 x10^3/uL (0.0-0.7) Basophils # (Auto) 0.1 x10^3/uL (0.0-0.2) Sodium Level 133 mmol/L (136-145) Potassium Level 3.3 mmol/L (3.5-5.1) Chloride Level 92 mmol/L (98-107) Carbon Dioxide Level 26 mmol/L (21-32) Anion Gap 15 (6-14) Blood Urea Nitrogen 6 mg/dL (7-20) Creatinine 0.9 mg/dL (0.6-1.0) Estimated GFR (Cockcroft-Gault) 64.1 BUN/Creatinine Ratio 7 (6-20) Glucose Level 130 mg/dL (70-99) Lactic Acid Level 1.2 mmol/L (0.4-2.0) Calcium Level 9.8 mg/dL (8.5-10.1) Magnesium Level 1.3 mg/dL (1.8-2.4) Total Bilirubin 0.5 mg/dL (0.2-1.0) Aspartate Amino Transf (AST/SGOT) 20 U/L (15-37) Alanine Aminotransferase (ALT/SGPT) 18 U/L (14-59) Alkaline Phosphatase 115 U/L (46-116) Troponin I Quantitative < 0.017 ng/mL (0.000-0.055) Total Protein 6.5 g/dL (6.4-8.2) Albumin 3.2 g/dL (3.4-5.0) Albumin/Globulin Ratio 1.0 (1.0-1.7) Lipase 126 U/L (73-393) Thyroid Stimulating Hormone (TSH) 3.082 uIU/mL (0.358-3.74) Ethyl Alcohol Level < 10 mg/dL (0-10) Urine Collection Type Void Urine Color Yellow Urine Clarity Clear Urine pH 7.0 Urine Specific [place] <=1.005 Urine Protein >=300 mg/dL (NEG-TRACE) Urine Glucose (UA) Negative mg/dL (NEG) Urine Ketones (Stick) Trace mg/dL (NEG) Urine Blood Small (NEG) Urine Nitrite Negative (NEG) Urine Bilirubin Negative (NEG) Urine Urobilinogen Dipstick 1.0 mg/dL (0.2 mg/dL) Urine Leukocyte Esterase Small (NEG) Urine RBC 0 /HPF (0-2) Urine WBC 1-4 /HPF (0-4) Urine Squamous Epithelial Cells Few /LPF Urine Bacteria Few /HPF (0-FEW) Urine Opiates Screen Neg (NEG) Urine Methadone Screen Neg (NEG) Urine Barbiturates Neg (NEG) Urine Phencyclidine Screen Neg (NEG) Urine Amphetamine/Methamphetamine Neg (NEG) Urine Benzodiazepines Screen Neg (NEG) Urine Cocaine Screen Neg (NEG) Urine Cannabinoids Screen Neg (NEG) Urine Ethyl Alcohol Neg (NEG) Laboratory Tests Test 08/30/19 04:55 08/30/19 05:05 08/30/19 05:48 Glucose (Fingerstick) 136 mg/dL (70-99) White Blood Count 10.1 x10^3/uL (4.0-11.0) Red Blood Count 5.00 x10^6/uL (3.50-5.40) Hemoglobin 15.2 g/dL (12.0-15.5) Hematocrit 44.6 % (36.0-47.0) Mean Corpuscular Volume 89 fL (79-100) Mean Corpuscular Hemoglobin 30 pg (25-35) Mean Corpuscular Hemoglobin Concent 34 g/dL (31-37) Red Cell Distribution Width 14.6 % (11.5-14.5) Platelet Count 363 x10^3/uL (140-400) Neutrophils (%) (Auto) 79 % (31-73) Lymphocytes (%) (Auto) 12 % (24-48) Monocytes (%) (Auto) 7 % (0-9) Eosinophils (%) (Auto) 1 % (0-3) Basophils (%) (Auto) 1 % (0-3) Neutrophils # (Auto) 8.0 x10^3/uL (1.8-7.7) Lymphocytes # (Auto) 1.2 x10^3/uL (1.0-4.8) Monocytes # (Auto) 0.7 x10^3/uL (0.0-1.1) Eosinophils # (Auto) 0.1 x10^3/uL (0.0-0.7) Basophils # (Auto) 0.1 x10^3/uL (0.0-0.2) Sodium Level 133 mmol/L (136-145) Potassium Level 3.3 mmol/L (3.5-5.1) Chloride Level 92 mmol/L (98-107) Carbon Dioxide Level 26 mmol/L (21-32) Anion Gap 15 (6-14) Blood Urea Nitrogen 6 mg/dL (7-20) Creatinine 0.9 mg/dL (0.6-1.0) Estimated GFR (Cockcroft-Gault) 64.1 BUN/Creatinine Ratio 7 (6-20) Glucose Level 130 mg/dL (70-99) Lactic Acid Level 1.2 mmol/L (0.4-2.0) Calcium Level 9.8 mg/dL (8.5-10.1) Magnesium Level 1.3 mg/dL (1.8-2.4) Total Bilirubin 0.5 mg/dL (0.2-1.0) Aspartate Amino Transf (AST/SGOT) 20 U/L (15-37) Alanine Aminotransferase (ALT/SGPT) 18 U/L (14-59) Alkaline Phosphatase 115 U/L (46-116) Troponin I Quantitative < 0.017 ng/mL (0.000-0.055) Total Protein 6.5 g/dL (6.4-8.2) Albumin 3.2 g/dL (3.4-5.0) Albumin/Globulin Ratio 1.0 (1.0-1.7) Lipase 126 U/L (73-393) Thyroid Stimulating Hormone (TSH) 3.082 uIU/mL (0.358-3.74) Ethyl Alcohol Level < 10 mg/dL (0-10) Urine Collection Type Void Urine Color Yellow Urine Clarity Clear Urine pH 7.0 Urine Specific [place] <=1.005 Urine Protein >=300 mg/dL (NEG-TRACE) Urine Glucose (UA) Negative mg/dL (NEG) Urine Ketones (Stick) Trace mg/dL (NEG) Urine Blood Small (NEG) Urine Nitrite Negative (NEG) Urine Bilirubin Negative (NEG) Urine Urobilinogen Dipstick 1.0 mg/dL (0.2 mg/dL) Urine Leukocyte Esterase Small (NEG) Urine RBC 0 /HPF (0-2) Urine WBC 1-4 /HPF (0-4) Urine Squamous Epithelial Cells Few /LPF Urine Bacteria Few /HPF (0-FEW) Urine Opiates Screen Neg (NEG) Urine Methadone Screen Neg (NEG) Urine Barbiturates Neg (NEG) Urine Phencyclidine Screen Neg (NEG) Urine Amphetamine/Methamphetamine Neg (NEG) Urine Benzodiazepines Screen Neg (NEG) Urine Cocaine Screen Neg (NEG) Urine Cannabinoids Screen Neg (NEG) Urine Ethyl Alcohol Neg (NEG) MARYLIN MILNER MD Aug 30, 2019 17:49
[2019-08-30] MEDS: CARVEDILOL 6.25 MG TABLET. PO SCH (18:17)
[2019-08-30] MEDS ORDERED: NICOTINE 21MG PATCH. TD SCH (19:00)
[2019-08-30 19:40] VITALS: BP 16/79
[2019-08-30] MEDS: ZIPRASIDONE 20 MG CAPSULE PO SCH (21:22)
[2019-08-30] MEDS: LACTOBACILLUS RHAMNOSUS GG 1 CAPSULE. PO SCH (21:22)
[2019-08-30] MEDS: buPROPion XL 150 MG TAB.ER.24H. PO SCH (21:22)
[2019-08-30] MEDS: ATORVASTATIN CALCIUM 20 MG TABLET PO SCH (21:23)
[2019-08-30 23:35] VITALS: BP 161/84
[2019-08-31] MEDS: IV NORMAL SALINE 1000ML BAG 1,000 ML IV SCH ×2 (02:03→22:42)
[2019-08-31 03:35] VITALS: BP 151/77
--- NOTE | 2019-08-31 04:08 | RAD ---
EXAM: CAROTID DOPPLER SONOGRAM. HISTORY: Aphasia, transient ischemic attack. TECHNIQUE: Jeffrey scale and color Doppler sonographic evaluation of the neck with spectral waveform analysis was performed and static images are submitted for review. FINDINGS: RIGHT: The peak systolic velocity within the common carotid artery is 80 cm/sec. The peak systolic velocity within the internal carotid artery is 61 cm/sec and the end diastolic velocity within the internal carotid artery is 22 cm/sec. The ICA/CCA ratio is 0.7. Grayscale images demonstrate moderate plaquing without hemodynamically significant stenosis. LEFT: The peak systolic velocity within the common carotid artery is 70 cm/sec. The peak systolic velocity within the internal carotid artery is 74 cm/sec and the end diastolic velocity within the internal carotid artery is 29 cm/sec. The ICA/CCA ratio is 1.1. Grayscale images demonstrate no grayscale stenosis. There is antegrade flow within both vertebral arteries. IMPRESSION: 1. No evidence of hemodynamically significant stenosis. PQRS Compliance Statement - Stenosis calculations for CT, MR and conventional angiography are based upon measurement of the distal ICA diameter in accordance with the NASCET methodology. Stenosis calculations for carotid ultrasound studies are derived from validated velocity criteria which are known to correlate with the NASCET methodology. Electronically signed by: Hazel Salinas MD (08/31/2019 4:05 AM) [id number]
[2019-08-31 04:54] LABS: BASO # 0.1 x10^3/uL (0.0-0.2); BASO % 1 % (0-3); EOS # 0.1 x10^3/uL (0.0-0.7); EOS % 1 % (0-3); HEMATOCRIT 44.2 % (36.0-47.0); HEMOGLOBIN 14.8 g/dL (12.0-15.5); LYMPH # 1.4 x10^3/uL (1.0-4.8); LYMPH % 12 % (24-48); MEAN CORPUSCULAR HEMOGLOBIN 30 pg (25-35); MEAN CORPUSCULAR HGB CONC 34 g/dL (31-37); MEAN CORPUSCULAR VOLUME 90 fL (79-100); MONO # 1.1 x10^3/uL (0.0-1.1); MONO % 9 % (0-9); NEUT # 9.6 x10^3/uL (1.8-7.7); NEUT % 78 % (31-73); PLATELET COUNT 376 x10^3/uL (140-400); RED BLOOD COUNT 4.93 x10^6/uL (3.50-5.40); RED CELL DISTRIBUTION WIDTH 14.7 % (11.5-14.5); WHITE BLOOD COUNT 12.3 x10^3/uL (4.0-11.0)
[2019-08-31 05:12] LABS: ALBUMIN 2.7 g/dL (3.4-5.0); ALBUMIN/GLOBULIN RATIO 0.7 (1.0-1.7); CALCIUM 9.3 mg/dL (8.5-10.1); GFR 56.7; POTASSIUM 3.6 mmol/L (3.5-5.1); TOTAL BILIRUBIN 0.5 mg/dL (0.2-1.0); TOTAL PROTEIN 6.5 g/dL (6.4-8.2)
[2019-08-31 07:00] VITALS: BP 151/79
--- NOTE | 2019-08-31 08:05 | PDOC ---
PROGRESS NOTES History of Present Illness History of Present Illness VTE Prophylaxis Ordered VTE Prophylaxis Devices: Yes VTE Pharmacological Prophylaxi: Yes Assessment/Plan Assessment/Plan IMPRESSION: ACUTE ALTERED MENTATION acute metabolic encephalopathy possible uti No acute infarct, acute hemorrhage, mass, or hydrocephalus. Mild CEREBRAL atrophy and chronic microangiopathic white matter change. ON CT HEAD OBESITY hx schizophrenia, possible acute psychosis 08/31/// much more alert, oriented after holding psych meds x 24 hrs, PAT team consulted, ate all of breakfast, cooperative, knows correct day was on geodon 120mg po q hs ADMIT NEUROLOGY CONSULT NEUROCHECKS Q 4 HRS ADMIT 2 MN TELE EEG uds blood culture urine culture dvt prophylaxis hold geodon and sedating meds IV CIPRO 200MG BID, [facility] min pt exam, chart review, > 50% of time spent with exam, chart review, pt care coordination Vitals Vitals Vital Signs Date Time Temp Pulse Resp B/P (MAP) Pulse Ox O2 Delivery O2 Flow Rate FiO2 08/31/19 03:35 98.1 82 16 151/77 (101) 92 Room Air 98.1 Physical Exam General: Alert, Oriented X3, Cooperative, No acute distress Heart: Regular rate, Normal S1, No murmurs Lungs: Clear Abdomen: Normal bowel sounds, Soft Extremities: No clubbing, No cyanosis, No edema Skin: No significant lesion Labs LABS Mark Ron M.D., Chief Pilot PATIENT: SALONI GOFF ACCT: [id number] LOC: [address] [place] [address] U: [id number] AGE/SX: 58/F ROOM: 674 RE08/30/[address]: DOUGLAS MIGUEL : 1960 BED: 1 DIS: STATUS: ADM IN TLOC: SPEC #: [id number] DAMIAN: 08/30/19 STATUS: RES REQ #: [id number] RECD: 08/30/[address] [facility] [address]: ALMA ROSA ROMAN DO SOURCE: BLOOD ENTR: 08/30/[address] [facility] [address]: UNKNOWN PCP NAME [facility]: ORDERED: BCULT Procedure Result BLOOD CULTURE Preliminary NO GROWTH AFTER 1 DAY Laboratory Tests Test 08/31/19 04:29 White Blood Count 12.3 x10^3/uL (4.0-11.0) Red Blood Count 4.93 x10^6/uL (3.50-5.40) Hemoglobin 14.8 g/dL (12.0-15.5) Hematocrit 44.2 % (36.0-47.0) Mean Corpuscular Volume 90 fL (79-100) Mean Corpuscular Hemoglobin 30 pg (25-35) Mean Corpuscular Hemoglobin Concent 34 g/dL (31-37) Red Cell Distribution Width 14.7 % (11.5-14.5) Platelet Count 376 x10^3/uL (140-400) Neutrophils (%) (Auto) 78 % (31-73) Lymphocytes (%) (Auto) 12 % (24-48) Monocytes (%) (Auto) 9 % (0-9) Eosinophils (%) (Auto) 1 % (0-3) Basophils (%) (Auto) 1 % (0-3) Neutrophils # (Auto) 9.6 x10^3/uL (1.8-7.7) Lymphocytes # (Auto) 1.4 x10^3/uL (1.0-4.8) Monocytes # (Auto) 1.1 x10^3/uL (0.0-1.1) Eosinophils # (Auto) 0.1 x10^3/uL (0.0-0.7) Basophils # (Auto) 0.1 x10^3/uL (0.0-0.2) Sodium Level 138 mmol/L (136-145) Potassium Level 3.6 mmol/L (3.5-5.1) Chloride Level 102 mmol/L (98-107) Carbon Dioxide Level 27 mmol/L (21-32) Anion Gap 9 (6-14) Blood Urea Nitrogen 6 mg/dL (7-20) Creatinine 1.0 mg/dL (0.6-1.0) Estimated GFR (Cockcroft-Gault) 56.7 BUN/Creatinine Ratio 6 (6-20) Glucose Level 130 mg/dL (70-99) Calcium Level 9.3 mg/dL (8.5-10.1) Total Bilirubin 0.5 mg/dL (0.2-1.0) Aspartate Amino Transf (AST/SGOT) 15 U/L (15-37) Alanine Aminotransferase (ALT/SGPT) 14 U/L (14-59) Alkaline Phosphatase 104 U/L (46-116) Total Protein 6.5 g/dL (6.4-8.2) Albumin 2.7 g/dL (3.4-5.0) Albumin/Globulin Ratio 0.7 (1.0-1.7) Assessment and Plan Assessmemt and Plan Problems Medical Problems: (1) Ischemic stroke Status: Acute Comment Review of Relevant I have reviewed the following items dion (where applicable) has been applied. Labs Laboratory Tests Test 08/30/19 04:55 08/30/19 05:05 08/30/19 05:48 08/31/19 04:29 Glucose (Fingerstick) 136 mg/dL (70-99) White Blood Count 10.1 x10^3/uL (4.0-11.0) 12.3 x10^3/uL (4.0-11.0) Red Blood Count 5.00 x10^6/uL (3.50-5.40) 4.93 x10^6/uL (3.50-5.40) Hemoglobin 15.2 g/dL (12.0-15.5) 14.8 g/dL (12.0-15.5) Hematocrit 44.6 % (36.0-47.0) 44.2 % (36.0-47.0) Mean Corpuscular Volume 89 fL (79-100) 90 fL (79-100) Mean Corpuscular Hemoglobin 30 pg (25-35) 30 pg (25-35) Mean Corpuscular Hemoglobin Concent 34 g/dL (31-37) 34 g/dL (31-37) Red Cell Distribution Width 14.6 % (11.5-14.5) 14.7 % (11.5-14.5) Platelet Count 363 x10^3/uL (140-400) 376 x10^3/uL (140-400) Neutrophils (%) (Auto) 79 % (31-73) 78 % (31-73) Lymphocytes (%) (Auto) 12 % (24-48) 12 % (24-48) Monocytes (%) (Auto) 7 % (0-9) 9 % (0-9) Eosinophils (%) (Auto) 1 % (0-3) 1 % (0-3) Basophils (%) (Auto) 1 % (0-3) 1 % (0-3) Neutrophils # (Auto) 8.0 x10^3/uL (1.8-7.7) 9.6 x10^3/uL (1.8-7.7) Lymphocytes # (Auto) 1.2 x10^3/uL (1.0-4.8) 1.4 x10^3/uL (1.0-4.8) Monocytes # (Auto) 0.7 x10^3/uL (0.0-1.1) 1.1 x10^3/uL (0.0-1.1) Eosinophils # (Auto) 0.1 x10^3/uL (0.0-0.7) 0.1 x10^3/uL (0.0-0.7) Basophils # (Auto) 0.1 x10^3/uL (0.0-0.2) 0.1 x10^3/uL (0.0-0.2) Sodium Level 133 mmol/L (136-145) 138 mmol/L (136-145) Potassium Level 3.3 mmol/L (3.5-5.1) 3.6 mmol/L (3.5-5.1) Chloride Level 92 mmol/L (98-107) 102 mmol/L (98-107) Carbon Dioxide Level 26 mmol/L (21-32) 27 mmol/L (21-32) Anion Gap 15 (6-14) 9 (6-14) Blood Urea Nitrogen 6 mg/dL (7-20) 6 mg/dL (7-20) Creatinine 0.9 mg/dL (0.6-1.0) 1.0 mg/dL (0.6-1.0) Estimated GFR (Cockcroft-Gault) 64.1 56.7 BUN/Creatinine Ratio 7 (6-20) 6 (6-20) Glucose Level 130 mg/dL (70-99) 130 mg/dL (70-99) Lactic Acid Level 1.2 mmol/L (0.4-2.0) Calcium Level 9.8 mg/dL (8.5-10.1) 9.3 mg/dL (8.5-10.1) Magnesium Level 1.3 mg/dL (1.8-2.4) Total Bilirubin 0.5 mg/dL (0.2-1.0) 0.5 mg/dL (0.2-1.0) Aspartate Amino Transf (AST/SGOT) 20 U/L (15-37) 15 U/L (15-37) Alanine Aminotransferase (ALT/SGPT) 18 U/L (14-59) 14 U/L (14-59) Alkaline Phosphatase 115 U/L (46-116) 104 U/L (46-116) Troponin I Quantitative < 0.017 ng/mL (0.000-0.055) Total Protein 6.5 g/dL (6.4-8.2) 6.5 g/dL (6.4-8.2) Albumin 3.2 g/dL (3.4-5.0) 2.7 g/dL (3.4-5.0) Albumin/Globulin Ratio 1.0 (1.0-1.7) 0.7 (1.0-1.7) Lipase 126 U/L (73-393) Thyroid Stimulating Hormone (TSH) 3.082 uIU/mL (0.358-3.74) Ethyl Alcohol Level < 10 mg/dL (0-10) Urine Collection Type Void Urine Color Yellow Urine Clarity Clear Urine pH 7.0 Urine Specific [place] <=1.005 Urine Protein >=300 mg/dL (NEG-TRACE) Urine Glucose (UA) Negative mg/dL (NEG) Urine Ketones (Stick) Trace mg/dL (NEG) Urine Blood Small (NEG) Urine Nitrite Negative (NEG) Urine Bilirubin Negative (NEG) Urine Urobilinogen Dipstick 1.0 mg/dL (0.2 mg/dL) Urine Leukocyte Esterase Small (NEG) Urine RBC 0 /HPF (0-2) Urine WBC 1-4 /HPF (0-4) Urine Squamous Epithelial Cells Few /LPF Urine Bacteria Few /HPF (0-FEW) Urine Opiates Screen Neg (NEG) Urine Methadone Screen Neg (NEG) Urine Barbiturates Neg (NEG) Urine Phencyclidine Screen Neg (NEG) Urine Amphetamine/Methamphetamine Neg (NEG) Urine Benzodiazepines Screen Neg (NEG) Urine Cocaine Screen Neg (NEG) Urine Cannabinoids Screen Neg (NEG) Urine Ethyl Alcohol Neg (NEG) Laboratory Tests Test 08/31/19 04:29 White Blood Count 12.3 x10^3/uL (4.0-11.0) Red Blood Count 4.93 x10^6/uL (3.50-5.40) Hemoglobin 14.8 g/dL (12.0-15.5) Hematocrit 44.2 % (36.0-47.0) Mean Corpuscular Volume 90 fL (79-100) Mean Corpuscular Hemoglobin 30 pg (25-35) Mean Corpuscular Hemoglobin Concent 34 g/dL (31-37) Red Cell Distribution Width 14.7 % (11.5-14.5) Platelet Count 376 x10^3/uL (140-400) Neutrophils (%) (Auto) 78 % (31-73) Lymphocytes (%) (Auto) 12 % (24-48) Monocytes (%) (Auto) 9 % (0-9) Eosinophils (%) (Auto) 1 % (0-3) Basophils (%) (Auto) 1 % (0-3) Neutrophils # (Auto) 9.6 x10^3/uL (1.8-7.7) Lymphocytes # (Auto) 1.4 x10^3/uL (1.0-4.8) Monocytes # (Auto) 1.1 x10^3/uL (0.0-1.1) Eosinophils # (Auto) 0.1 x10^3/uL (0.0-0.7) Basophils # (Auto) 0.1 x10^3/uL (0.0-0.2) Sodium Level 138 mmol/L (136-145) Potassium Level 3.6 mmol/L (3.5-5.1) Chloride Level 102 mmol/L (98-107) Carbon Dioxide Level 27 mmol/L (21-32) Anion Gap 9 (6-14) Blood Urea Nitrogen 6 mg/dL (7-20) Creatinine 1.0 mg/dL (0.6-1.0) Estimated GFR (Cockcroft-Gault) 56.7 BUN/Creatinine Ratio 6 (6-20) Glucose Level 130 mg/dL (70-99) Calcium Level 9.3 mg/dL (8.5-10.1) Total Bilirubin 0.5 mg/dL (0.2-1.0) Aspartate Amino Transf (AST/SGOT) 15 U/L (15-37) Alanine Aminotransferase (ALT/SGPT) 14 U/L (14-59) Alkaline Phosphatase 104 U/L (46-116) Total Protein 6.5 g/dL (6.4-8.2) Albumin 2.7 g/dL (3.4-5.0) Albumin/Globulin Ratio 0.7 (1.0-1.7) Microbiology 08/30/19 Blood Culture - Preliminary, Resulted NO GROWTH AFTER 1 DAY Medications Current Medications Ondansetron HCl (Zofran) 4 mg PRN Q8HRS PRN IV NAUSEA/VOMITING 1ST CHOICE; Start 08/30/19 at 06:00; Stop 08/31/19 at 05:59; Status DC Sodium Chloride 1,000 ml @ 125 mls/hr Q8H IV Last administered on 08/31/19at 02:03; Start 08/30/19 at 06:00; Stop 08/31/19 at 05:59; Status DC Acetaminophen (Tylenol) 650 mg PRN Q4HRS PRN PO FEVER; Start 08/30/19 at 06:00; Stop 08/31/19 at 05:59; Status DC Amlodipine Besylate (Norvasc) 10 mg DAILY PO Last administered on 08/30/19at 15:27; Start 08/30/19 at 13:30 Aspirin (Lauren Aspirin) 325 mg DAILY PO Last administered on 08/30/19at 15:27; Start 08/30/19 at 14:00 Atorvastatin Calcium (Lipitor) 20 mg HS PO Last administered on 08/30/19at 21:23; Start 08/30/19 at 21:00 Bupropion HCl (Wellbutrin Xl) 150 mg HS PO Last administered on 08/30/19at 21:22; Start 08/30/19 at 21:00 Carvedilol (Coreg) 6.25 mg BIDWMEALS PO Last administered on 08/30/19at 18:17; Start 08/30/19 at 17:00 Ziprasidone (Geodon) 20 mg HS PO Last administered on 08/30/19 21:22; Start 08/30/19 at 21:00 Calcium Carbonate/ Glycine (Oscal) 500 mg DAILY PO Last administered on 08/30/19at 15:28; Start 08/30/19 at 14:00 Fish Oil (Fish Oil) 1,000 mg TID PO Last administered on 08/30/19at 21:22; Start 08/30/19 at 14:00 Non-Formulary Medication (Fish Oil/Dha/ Epa (Fish Oil 1,200 Mg Fish Oil)) 2 each DAILY PO ; Start 08/31/19 at 09:00; Stop 08/30/19 at 12:52; Status DC Losartan Potassium (Cozaar) 100 mg DAILY PO Last administered on 08/30/19at 15:28; Start 08/30/19 at 14:00 Multivitamins (Thera M Plus) 1 tab DAILY PO Last administered on 08/30/19at 15:28; Start 08/30/19 at 14:00 Vitamin E 400 unit DAILY PO Last administered on 08/30/19at 15:26; Start 08/30/19 at 14:00 Polysaccharide Iron Complex (Niferex 150) 150 mg DAILY PO Last administered on 08/30/19at 15:27; Start 08/30/19 at 14:00 Ciprofloxacin/ Dextrose 100 ml @ 100 mls/hr Q12HR IV Last administered on 08/30/19at 21:22; Start 08/30/19 at 13:00 Potassium Chloride (Klor-Con) 40 meq 1X ONCE PO Last administered on 08/30/19at 15:27; Start 08/30/19 at 13:00; Stop 08/30/19 at 13:01; Status DC Potassium Chloride (Klor-Con) 20 meq DAILYWBKFT PO ; Start 08/31/19 at 08:00 Lactobacillus Rhamnosus (Culturelle) 1 cap BID PO Last administered on 08/30/19at 21:22; Start 08/30/19 at 21:00 Nicotine (Nicoderm Cq 21mg) 1 patch DAILY TD ; Start 08/30/19 at 19:00; Stop 08/30/19 at 18:44; Status DC Nicotine (Nicoderm Cq 21mg) 1 patch DAILY TD ; Start 08/31/19 at 09:00 Active Scripts Active Aspirin 325 Mg Tablet 1 Tab PO DAILY Reported Amitriptyline Hcl 25 Mg Tablet 1 Tab PO QHS Risperidone 0.5 Mg Tablet 1 Tab PO DAILY Carvedilol 6.25 Mg Tablet 6.25 Mg PO BID Fish Oil 1,200 Mg Fish Oil (Fish Oil/Dha/Epa) 1 Each Capsule 1 Each PO TID Haloperidol 5 Mg Tablet 3 Tab PO DAILY Wellbutrin Xl (Bupropion Hcl) 150 Mg Tab.er.24h 1 Tab PO HS Ziprasidone Hcl 20 Mg Capsule 20 Mg PO HS Ziprasidone Hcl 60 Mg Capsule 120 Mg PO HS Trazodone Hcl 100 Mg Tablet 150 Mg PO HS Fish Oil 1,200 Mg Fish Oil (Fish Oil/Dha/Epa) 1 Each Capsule 2 Each PO DAILY Centrum Silver Tablet (Multivits-Min/Fa/Lycopene/Lut) 1 Each Tablet 1 Each PO DAILY Alprazolam 0.25 Mg Tablet 3 Tab PO TID Ferrous Sulfate 325 Mg Tablet.dr 325 Mg PO Atorvastatin Calcium 20 Mg Tablet 20 Mg PO HS Calcium (Calcium Carbonate) 600 Mg Tablet 600 Mg PO DAILY Metformin Hcl 500 Mg Tablet 2 Tab PO DAILY Losartan Potassium 100 Mg Tablet 100 Mg PO DAILY Vitamin E (Vitamin E Mixed) 400 Unit Capsule 400 Unit PO DAILY Amlodipine Besylate 10 Mg Tablet 10 Mg PO DAILY Vitals/I & O Vital Sign - Last 24 Hours 08/30/19 08/30/19 08/30/19 08/30/19 11:03 15:15 15:27 15:28 Temp 97.0 98.5 97.0 98.5 Pulse 89 82 89 89 Resp 20 18 B/P (MAP) 156/71 (99) 153/96 (115) 156/71 156/71 Pulse Ox 96 96 O2 Delivery Room Air Room Air 08/30/19 08/30/19 08/30/19 08/30/19 18:17 19:40 20:07 23:35 Temp 97.6 98.1 97.6 98.1 Pulse 89 74 85 Resp 16 16 B/P (MAP) 156/71 16/79 (58) 161/84 (109) Pulse Ox 92 96 O2 Delivery Room Air Room Air Room Air 08/31/19 03:35 Temp 98.1 98.1 Pulse 82 Resp 16 B/P (MAP) 151/77 (101) Pulse Ox 92 O2 Delivery Room Air Intake and Output 08/30/19 08/30/19 08/31/19 15:00 23:00 07:00 Intake Total 0 ml 340 ml 1000 ml Balance 0 ml 340 ml 1000 ml MAXIME ALMODOVAR MD Aug 31, 2019 08:05
[2019-08-31] MEDS ORDERED: DHA PO SCH (09:00)
[2019-08-31] MEDS ORDERED: EPA PO SCH (09:00)
[2019-08-31] MEDS ORDERED: FISH OIL PO SCH (09:00)
[2019-08-31] MEDS: NICOTINE 21MG PATCH. TD SCH (10:01)
[2019-08-31] MEDS: MULTIVITAMIN with MINERAL TABLET. PO SCH (10:01)
[2019-08-31] MEDS: OMEGA-3 FATTY ACIDS/FISH OIL 1,000 MG CAPSULE. PO SCH ×4 (10:01→21:17)
[2019-08-31] MEDS: VITAMIN E 200 UNIT CAPSULE. PO SCH (10:01)
[2019-08-31] MEDS: ASPIRIN 325 MG TABLET PO SCH (10:01)
[2019-08-31] MEDS: amLODIPine BESYLATE 10 MG TABLET PO SCH (10:02)
[2019-08-31] MEDS: LOSARTAN POTASSIUM 50 MG TABLET. PO SCH (10:02)
[2019-08-31] MEDS: POTASSIUM CHLORIDE 20 MEQ TABLET.ER. PO SCH (10:03)
[2019-08-31] MEDS: CARVEDILOL 6.25 MG TABLET. PO SCH ×2 (10:03→17:14)
[2019-08-31] MEDS: CALCIUM CARBONATE 500 MG TABLET PO SCH (10:03)
[2019-08-31] MEDS: CIPROFLOXACIN 200MG PREMIX 100 ML IV SCH (10:06)
[2019-08-31 11:28] VITALS: BP 165/88
--- NOTE | 2019-08-31 12:48 | EEG ---
DATE OF SERVICE: 08/30/2019 EEG NUMBER: [id number]. OBJECTIVE: This is a 58-year-old female patient with history of mental status changes. EEG was requested to evaluate cerebral activity. METHODS: Twenty electrodes were applied according to the international 10-20 electrode placement system. EKG monitoring, hyperventilation, intermittent photic stimulation, monopolar and bipolar montages are routinely utilized. The record was obtained on a digital system with video monitoring. FINDINGS: 1. Background: The patient was recorded in the awake and drowsy states. No actual sleep state was recorded. The overall background amplitude is 10-30 microvolts. A posterior dominant rhythm of 6-7 Hz is observed with superimposed slowing in the theta frequency. 2. Abnormalities: No specific epileptiform discharge or electrographic seizure is seen. Relative diffuse slowing in the theta frequencies noted. 3. Activation: Hyperventilation was performed with fair efforts. Intermittent photic stimulation was performed with photic driving. IMPRESSION: This EEG is an abnormal study for the awake and drowsy states. No actual sleep state was recorded. The posterior dominant rhythm of 6-7 Hz is slow for age. There is superimposed slowing in the theta frequency throughout the entire recording. No focal, lateralizing, specific epileptiform discharge or electrographic seizure is seen. This pattern of EEG may suggest encephalopathy. MARYLIN MILNER MD DR: Eva JOB#: [id number] / [id number] SOREN
[2019-08-31] MEDS: IRON POLYSACCHARIDE COMPLEX 150 MG CAPSULE PO SCH (13:25)
[2019-08-31] MEDS: LACTOBACILLUS RHAMNOSUS GG 1 CAPSULE. PO SCH ×3 (13:25→21:17)
[2019-08-31 15:20] VITALS: BP 177/90
--- NOTE | 2019-08-31 16:36 | PDOC ---
PROGRESS NOTES Assessment Assessment Mental status changes. Confusion. Difficult talking. Psychiatric meds side effects likely. DM. HTN. HLD. Old CVA.. Smoking. Depression. Schizophrenia. No evidence of acute CVA this time. RECOMMENDATIONS/PLAN: Continue ASA 325 mg daily. Continue Lipitor HS. Treat medical diseases. Discussed with her son at bedside on 08/31/19. FU with PCP. EEG on 08/30/19: In consistent with encephalopathy. HISTORY OF THE PRESENT ILLNESS: This is a 58-year-old female with anxiety, depression and post dramatic stress disorder and CVA in the past. Her son reported that patient called him at 1 AM stating she didn't feel right. He noted that she was having an increased difficulty talking. She was seen in the ER of [facility] and was found not able to name correctly with MS changes. No focalized sensory or motor deficits. Her MS changes recovered on 08/31/19. Past Medical History Anxiety, Depression, Diabetes-Type II, High Cholesterol, Hypertension, Schizophrenia, Stroke, INVOLUNTARY MUSCLE MOVEMENT, CERVICAL CANCER, PTSD. PAST SURGERY HISTORY: Coronary Bypass Surgery ALLERGIES: PENICILLIN, DOXYCYCLINE, AND TETRACYCLINE. FAMILY HISTORY: Coronary artery disease. MEDICATIONS: Refer to [facility] SOCIAL HISTORY: Lives at home. Denies drinking and illicit drug use. She smokes 2 pack of cigarettes a day for many years. REVIEW OF SYSTEMS: Constitutional: No malnutrition, weight loss, cachexia. Head: No traumatic brain or head injury. Skin: No edema, or rash. Ear: No infection. Eyes: No vision loss or color blindness. Nose: No bleeding or purulent discharges. Hearing: No hearing decrease. Neck: No injury. Breast: No history of cancer, masses,or discharges. Cardiac: s/p CABG, HTN, HLD. Pulmonary: Smoking. GI: No GI ulcer, GI bleeding. Urinary/genital: UTI. Endocrinologic: Diabetes Mellitus. Skeletomuscular: No muscular atrophy. Neurological: see HP. Psychiatric: Denies drug use/abuse. Otherwise, not [id number] review of systems. PHYSICAL EXAMINATION: General appearance is in no acute distress. HEENT: Normocephalic and nontraumatic. Eyes, nose, ears, and throat are unremarkable. Neck is supple. No lymphadenopathy. No crepitus. Cardiovascular: S1, S2, regular rate and rhythm. Pulmonary: Clear to auscultation bilaterally. Abdomen: Bowel sounds are positive. Extremities: No rash, lesions, or edema. No restriction of range of motion NEUROLOGICAL EXAMINATION: Awake. Oriented to time, place and person. PERRL. EOMI. CN: no focal findings. Muscle tone: within normal. Muscle strength: 5 DTR: 2 Plantar reflex: Flexor response bilaterally Gait: At her baseline normal. Sensory exam: no abnormal findings. No cerebellar signs elicited. F-T-N test fine. Objective Objective Vital Signs Date Time Temp Pulse Resp B/P (MAP) Pulse Ox O2 Delivery O2 Flow Rate FiO2 08/31/19 15:20 98.4 86 16 177/90 (119) 96 Room Air 98.4 Intake and Output 08/31/19 07:00 Intake Total 1340 ml Balance 1340 ml Intake Oral 240 ml IV Total 1100 ml # Voids 7 Vitals Signs Vitals VS - Last 72 Hours, by Label Date Time Temp Pulse Resp B/P (MAP) Pulse Ox O2 Delivery O2 Flow Rate FiO2 08/31/19 15:20 98.4 86 16 177/90 (119) 96 Room Air 98.4 08/31/19 11:28 98.1 83 18 165/88 (113) 95 Room Air 98.1 08/31/19 10:03 85 151/79 08/31/19 10:02 85 151/79 08/31/19 10:02 85 151/79 08/31/19 08:00 Room Air 08/31/19 07:00 97.5 85 18 151/79 (103) 94 Room Air 97.5 08/31/19 03:35 98.1 82 16 151/77 (101) 92 Room Air 98.1 08/30/19 23:35 98.1 85 16 161/84 (109) 96 Room Air 98.1 08/30/19 20:07 Room Air 08/30/19 19:40 97.6 74 16 16/79 (58) 92 Room Air 97.6 08/30/19 18:17 89 156/71 08/30/19 15:28 89 156/71 08/30/19 15:27 89 156/71 08/30/19 15:15 98.5 82 18 153/96 (115) 96 Room Air 98.5 08/30/19 11:03 97.0 89 20 156/71 (99) 96 Room Air 97.0 08/30/19 07:30 Room Air 08/30/19 07:15 97.3 94 18 163/79 (107) 96 Room Air 97.3 Laboratory Laboratory Laboratory Tests Test 08/31/19 04:29 White Blood Count 12.3 x10^3/uL (4.0-11.0) Red Blood Count 4.93 x10^6/uL (3.50-5.40) Hemoglobin 14.8 g/dL (12.0-15.5) Hematocrit 44.2 % (36.0-47.0) Mean Corpuscular Volume 90 fL (79-100) Mean Corpuscular Hemoglobin 30 pg (25-35) Mean Corpuscular Hemoglobin Concent 34 g/dL (31-37) Red Cell Distribution Width 14.7 % (11.5-14.5) Platelet Count 376 x10^3/uL (140-400) Neutrophils (%) (Auto) 78 % (31-73) Lymphocytes (%) (Auto) 12 % (24-48) Monocytes (%) (Auto) 9 % (0-9) Eosinophils (%) (Auto) 1 % (0-3) Basophils (%) (Auto) 1 % (0-3) Neutrophils # (Auto) 9.6 x10^3/uL (1.8-7.7) Lymphocytes # (Auto) 1.4 x10^3/uL (1.0-4.8) Monocytes # (Auto) 1.1 x10^3/uL (0.0-1.1) Eosinophils # (Auto) 0.1 x10^3/uL (0.0-0.7) Basophils # (Auto) 0.1 x10^3/uL (0.0-0.2) Sodium Level 138 mmol/L (136-145) Potassium Level 3.6 mmol/L (3.5-5.1) Chloride Level 102 mmol/L (98-107) Carbon Dioxide Level 27 mmol/L (21-32) Anion Gap 9 (6-14) Blood Urea Nitrogen 6 mg/dL (7-20) Creatinine 1.0 mg/dL (0.6-1.0) Estimated GFR (Cockcroft-Gault) 56.7 BUN/Creatinine Ratio 6 (6-20) Glucose Level 130 mg/dL (70-99) Calcium Level 9.3 mg/dL (8.5-10.1) Total Bilirubin 0.5 mg/dL (0.2-1.0) Aspartate Amino Transf (AST/SGOT) 15 U/L (15-37) Alanine Aminotransferase (ALT/SGPT) 14 U/L (14-59) Alkaline Phosphatase 104 U/L (46-116) Total Protein 6.5 g/dL (6.4-8.2) Albumin 2.7 g/dL (3.4-5.0) Albumin/Globulin Ratio 0.7 (1.0-1.7) Microbiology 08/30/19 Blood Culture - Preliminary, Resulted NO GROWTH AFTER 1 DAY Medication Medications Current Medications Atorvastatin Calcium (Lipitor) 20 mg HS PO Last administered on 08/30/19at 21:23; Start 08/30/19 at 21:00 Bupropion HCl (Wellbutrin Xl) 150 mg HS PO Last administered on 08/30/19at 21:22; Start 08/30/19 at 21:00 Carvedilol (Coreg) 6.25 mg BIDWMEALS PO Last administered on 08/31/19at 10:03; Start 08/30/19 at 17:00 Ciprofloxacin (Cipro) 250 mg BID PO ; Start 08/31/19 at 21:00 Lactobacillus Rhamnosus (Culturelle) 1 cap BID PO Last administered on 08/31/19at 13:25; Start 08/30/19 at 21:00 Nicotine (Nicoderm Cq 21mg) 1 patch DAILY TD ; Start 08/30/19 at 19:00; Stop 08/30/19 at 18:44; Status DC Nicotine (Nicoderm Cq 21mg) 1 patch DAILY TD Last administered on 08/31/19at 10:01; Start 08/31/19 at 09:00 Non-Formulary Medication (Fish Oil/Dha/ Epa (Fish Oil 1,200 Mg Fish Oil)) 2 each DAILY PO ; Start 08/31/19 at 09:00; Stop 08/30/19 at 12:52; Status DC Potassium Chloride (Klor-Con) 20 meq DAILYWBKFT PO Last administered on 08/31/19at 10:03; Start 08/31/19 at 08:00 Ziprasidone (Geodon) 20 mg HS PO Last administered on 08/30/19at 21:22; Start 08/30/19 at 21:00 Comment Review of Relevant I have reviewed the following items dion (where applicable) has been applied. MARYLIN MILNER MD Aug 31, 2019 16:36
[2019-08-31 19:45] VITALS: BP 153/87
[2019-08-31] MEDS: ZIPRASIDONE 20 MG CAPSULE PO SCH ×2 (21:00→21:16)
[2019-08-31] MEDS: buPROPion XL 150 MG TAB.ER.24H. PO SCH ×2 (21:00→21:17)
[2019-08-31] MEDS: CIPROFLOXACIN HCL 250 MG TABLET. PO SCH ×2 (21:00→21:17)
[2019-08-31] MEDS: ATORVASTATIN CALCIUM 20 MG TABLET PO SCH ×2 (21:00→21:17)
[2019-08-31 23:41] VITALS: BP 168/96
[2019-09-01] MEDS ORDERED: LORazepam 1 MG TABLET PO PRN (00:30)
[2019-09-01 03:35] VITALS: BP 180/93
[2019-09-01 07:00] VITALS: BP 165/93
[2019-09-01] MEDS: IRON POLYSACCHARIDE COMPLEX 150 MG CAPSULE PO SCH (09:19)
[2019-09-01] MEDS: CARVEDILOL 6.25 MG TABLET. PO SCH (09:19)
[2019-09-01] MEDS: CIPROFLOXACIN HCL 250 MG TABLET. PO SCH (09:19)
[2019-09-01] MEDS: LOSARTAN POTASSIUM 50 MG TABLET. PO SCH (09:20)
[2019-09-01] MEDS: MULTIVITAMIN with MINERAL TABLET. PO SCH (09:20)
[2019-09-01] MEDS: LACTOBACILLUS RHAMNOSUS GG 1 CAPSULE. PO SCH (09:20)
[2019-09-01] MEDS: VITAMIN E 200 UNIT CAPSULE. PO SCH (09:20)
[2019-09-01] MEDS: POTASSIUM CHLORIDE 20 MEQ TABLET.ER. PO SCH (09:21)
[2019-09-01] MEDS: OMEGA-3 FATTY ACIDS/FISH OIL 1,000 MG CAPSULE. PO SCH (09:21)
[2019-09-01] MEDS: amLODIPine BESYLATE 10 MG TABLET PO SCH (09:21)
[2019-09-01] MEDS: ASPIRIN 325 MG TABLET PO SCH (09:21)
[2019-09-01] MEDS: NICOTINE 21MG PATCH. TD SCH (09:22)
[2019-09-01] MEDS: CALCIUM CARBONATE 500 MG TABLET PO SCH (09:28)
--- NOTE | 2019-09-01 10:43 | PDOC ---
PROGRESS NOTES History of Present Illness History of Present Illness VTE Prophylaxis Ordered VTE Prophylaxis Devices: Yes VTE Pharmacological Prophylaxi: Yes Assessment/Plan Assessment/Plan DISCHARGE DX ACUTE ALTERED MENTATION, RESOLVED acute metabolic encephalopathy possible uti No acute infarct, acute hemorrhage, mass, or hydrocephalus. Mild CEREBRAL atrophy and chronic microangiopathic white matter change. ON CT HEAD OBESITY hx schizophrenia, possible acute psychosis 08/31// much more alert, oriented after holding psych meds x 24 hrs, PAT team consulted, ate all of breakfast, cooperative, knows correct day was on geodon 120mg po q hs seems like a high dose 09/01 back to baseline, to see psychiatry tomorrow or THURSDAY// D/W JOÃO IN ROOM ADMIT NEUROLOGY CONSULT NEUROCHECKS Q 4 HRS ADMIT 2 MN TELE EEG uds blood culture urine culture dvt prophylaxis hold geodon and sedating meds IV CIPRO 200MG BID, CONTINUE follows with [facility] 34 min pt exam, chart review, D/C PLANNING > 50% of time spent with exam, chart review, pt care coordination Vitals Vitals Vital Signs Date Time Temp Pulse Resp B/P (MAP) Pulse Ox O2 Delivery O2 Flow Rate FiO2 09/01/19 09:21 90 165/93 09/01/19 07:00 97.4 18 97 Room Air 97.4 Physical Exam General: Alert, Oriented X3, Cooperative, No acute distress Heart: Regular rate, Normal S1, Normal S2, No murmurs Lungs: Clear Abdomen: Normal bowel sounds, Soft Extremities: No clubbing, No cyanosis, No edema Skin: No significant lesion Labs LABS URINE CULTURE Final Final report URINE CULTURE RES 1 Final Comment Beta hemolytic Streptococcus, group B Greater than 100,000 colony forming units per mL Penicillin and ampicillin are drugs of choice for treatment of beta-hemolytic streptococcal infections. Susceptibility testing of penicillins and other beta-lactam agents approved by the FDA for treatment of beta-hemolytic streptococcal infections need not be performed routinely because nonsusceptible isolates are extremely rare in any beta-hemolytic streptococcus and have not been reported for Streptococcus pyogenes (group A). (CLSI) URINE CULTURE RES 2 Final Comment Mixed urogenital eric 10,000-25,000 colony forming units per mL Performed at: DA - [facility], [place], [place] [id number] Feed Handler: THANG Hamilton MD, Phone: [phone] Assessment and Plan Assessmemt and Plan Problems Medical Problems: (1) Ischemic stroke Status: Acute Comment Review of Relevant I have reviewed the following items dion (where applicable) has been applied. Labs Laboratory Tests Test 08/31/19 04:29 White Blood Count 12.3 x10^3/uL (4.0-11.0) Red Blood Count 4.93 x10^6/uL (3.50-5.40) Hemoglobin 14.8 g/dL (12.0-15.5) Hematocrit 44.2 % (36.0-47.0) Mean Corpuscular Volume 90 fL (79-100) Mean Corpuscular Hemoglobin 30 pg (25-35) Mean Corpuscular Hemoglobin Concent 34 g/dL (31-37) Red Cell Distribution Width 14.7 % (11.5-14.5) Platelet Count 376 x10^3/uL (140-400) Neutrophils (%) (Auto) 78 % (31-73) Lymphocytes (%) (Auto) 12 % (24-48) Monocytes (%) (Auto) 9 % (0-9) Eosinophils (%) (Auto) 1 % (0-3) Basophils (%) (Auto) 1 % (0-3) Neutrophils # (Auto) 9.6 x10^3/uL (1.8-7.7) Lymphocytes # (Auto) 1.4 x10^3/uL (1.0-4.8) Monocytes # (Auto) 1.1 x10^3/uL (0.0-1.1) Eosinophils # (Auto) 0.1 x10^3/uL (0.0-0.7) Basophils # (Auto) 0.1 x10^3/uL (0.0-0.2) Sodium Level 138 mmol/L (136-145) Potassium Level 3.6 mmol/L (3.5-5.1) Chloride Level 102 mmol/L (98-107) Carbon Dioxide Level 27 mmol/L (21-32) Anion Gap 9 (6-14) Blood Urea Nitrogen 6 mg/dL (7-20) Creatinine 1.0 mg/dL (0.6-1.0) Estimated GFR (Cockcroft-Gault) 56.7 BUN/Creatinine Ratio 6 (6-20) Glucose Level 130 mg/dL (70-99) Calcium Level 9.3 mg/dL (8.5-10.1) Total Bilirubin 0.5 mg/dL (0.2-1.0) Aspartate Amino Transf (AST/SGOT) 15 U/L (15-37) Alanine Aminotransferase (ALT/SGPT) 14 U/L (14-59) Alkaline Phosphatase 104 U/L (46-116) Total Protein 6.5 g/dL (6.4-8.2) Albumin 2.7 g/dL (3.4-5.0) Albumin/Globulin Ratio 0.7 (1.0-1.7) Microbiology 08/30/19 Urine Culture - Final, Complete 08/30/19 Urine Culture Result 1 (JASVIR) - Final, Complete 08/30/19 Urine Culture Result 2 (JASVIR) - Final, Complete 08/30/19 Blood Culture - Preliminary, Resulted NO GROWTH AFTER 1 DAY Medications Current Medications Ondansetron HCl (Zofran) 4 mg PRN Q8HRS PRN IV NAUSEA/VOMITING 1ST CHOICE; Start 08/30/19 at 06:00; Stop 08/31/19 at 05:59; Status DC Sodium Chloride 1,000 ml @ 125 mls/hr Q8H IV Last administered on 08/31/19at 02:03; Start 08/30/19 at 06:00; Stop 08/31/19 at 05:59; Status DC Acetaminophen (Tylenol) 650 mg PRN Q4HRS PRN PO FEVER; Start 08/30/19 at 06:00; Stop 08/31/19 at 05:59; Status DC Amlodipine Besylate (Norvasc) 10 mg DAILY PO Last administered on 09/01/19at 09:21; Start 08/30/19 at 13:30 Aspirin (Lauren Aspirin) 325 mg DAILY PO Last administered on 09/01/19 09:21; Start 08/30/19 at 14:00 Atorvastatin Calcium (Lipitor) 20 mg HS PO Last administered on 08/30/19 21:23; Start 08/30/19 at 21:00 Bupropion HCl (Wellbutrin Xl) 150 mg HS PO Last administered on 08/30/19 21:22; Start 08/30/19 at 21:00 Carvedilol (Coreg) 6.25 mg BIDWMEALS PO Last administered on 09/01/19 09:19; Start 08/30/19 at 17:00 Ziprasidone (Geodon) 20 mg HS PO Last administered on 08/30/19 21:22; Start 08/30/19 at 21:00 Calcium Carbonate/ Glycine (Oscal) 500 mg DAILY PO Last administered on 09/01/19 09:28; Start 08/30/19 at 14:00 Fish Oil (Fish Oil) 1,000 mg TID PO Last administered on 09/01/19 09:21; Start 08/30/19 at 14:00 Non-Formulary Medication (Fish Oil/Dha/ Epa (Fish Oil 1,200 Mg Fish Oil)) 2 each DAILY PO ; Start 08/31/19 at 09:00; Stop 08/30/19 at 12:52; Status DC Losartan Potassium (Cozaar) 100 mg DAILY PO Last administered on 09/01/19 09:20; Start 08/30/19 at 14:00 Multivitamins (Thera M Plus) 1 tab DAILY PO Last administered on 09/01/19 09:20; Start 08/30/19 at 14:00 Vitamin E (Vitamin E.) 400 unit DAILY PO Last administered on 09/01/19 09:20; Start 08/30/19 at 14:00 Polysaccharide Iron Complex (Niferex 150) 150 mg DAILY PO Last administered on 09/01/19 09:19; Start 08/30/19 at 14:00 Ciprofloxacin/ Dextrose 100 ml @ 100 mls/hr Q12HR IV Last administered on 08/31/19at 10:06; Start 08/30/19 at 13:00; Stop 08/31/19 at 16:24; Status DC Potassium Chloride (Klor-Con) 40 meq 1X ONCE PO Last administered on 08/30/19at 15:27; Start 08/30/19 at 13:00; Stop 08/30/19 at 13:01; Status DC Potassium Chloride (Klor-Con) 20 meq DAILYWBKFT PO Last administered on 09/01/19at 09:21; Start 08/31/19 at 08:00 Lactobacillus Rhamnosus (Culturelle) 1 cap BID PO Last administered on 09/01/19at 09:20; Start 08/30/19 at 21:00 Nicotine (Nicoderm Cq 21mg) 1 patch DAILY TD ; Start 08/30/19 at 19:00; Stop 08/30/19 at 18:44; Status DC Nicotine (Nicoderm Cq 21mg) 1 patch DAILY TD Last administered on 09/01/19at 09:22; Start 08/31/19 at 09:00 Ciprofloxacin (Cipro) 250 mg BID PO Last administered on 09/01/19at 09:19; Start 08/31/19 at 21:00 Lorazepam (Ativan Inj) 1 mg PRN Q6HRS PRN IM ANXIETY / AGITATION; Start 09/01/19 at 00:30 Lorazepam (Ativan) 1 mg PRN Q6HRS PRN PO ANXIETY / AGITATION; Start 09/01/19 at 00:30 Active Scripts Active Aspirin 325 Mg Tablet 1 Tab PO DAILY Reported Amitriptyline Hcl 25 Mg Tablet 1 Tab PO QHS Risperidone 0.5 Mg Tablet 1 Tab PO DAILY Carvedilol 6.25 Mg Tablet 6.25 Mg PO BID Fish Oil 1,200 Mg Fish Oil (Fish Oil/Dha/Epa) 1 Each Capsule 1 Each PO TID Haloperidol 5 Mg Tablet 3 Tab PO DAILY Wellbutrin Xl (Bupropion Hcl) 150 Mg Tab.er.24h 1 Tab PO HS Ziprasidone Hcl 20 Mg Capsule 20 Mg PO HS Ziprasidone Hcl 60 Mg Capsule 120 Mg PO HS Trazodone Hcl 100 Mg Tablet 150 Mg PO HS Fish Oil 1,200 Mg Fish Oil (Fish Oil/Dha/Epa) 1 Each Capsule 2 Each PO DAILY Centrum Silver Tablet (Multivits-Min/Fa/Lycopene/Lut) 1 Each Tablet 1 Each PO DAILY Alprazolam 0.25 Mg Tablet 3 Tab PO TID Ferrous Sulfate 325 Mg Tablet.dr 325 Mg PO Atorvastatin Calcium 20 Mg Tablet 20 Mg PO HS Calcium (Calcium Carbonate) 600 Mg Tablet 600 Mg PO DAILY Metformin Hcl 500 Mg Tablet 2 Tab PO DAILY Losartan Potassium 100 Mg Tablet 100 Mg PO DAILY Vitamin E (Vitamin E Mixed) 400 Unit Capsule 400 Unit PO DAILY Amlodipine Besylate 10 Mg Tablet 10 Mg PO DAILY Vitals/I & O Vital Sign - Last 24 Hours 08/31/19 08/31/19 08/31/19 08/31/19 11:28 15:20 17:14 19:45 Temp 98.1 98.4 97.4 98.1 98.4 97.4 Pulse 83 86 86 80 Resp 18 16 18 B/P (MAP) 165/88 (113) 177/90 (119) 177/90 153/87 (109) Pulse Ox 95 96 97 O2 Delivery Room Air Room Air Room Air 08/31/19 08/31/19 09/01/19 09/01/19 20:00 23:41 03:35 07:00 Temp 97.7 97.6 97.4 97.7 97.6 97.4 Pulse 79 87 90 Resp 16 18 18 B/P (MAP) 168/96 (120) 180/93 (122) 165/93 (117) Pulse Ox 95 97 97 O2 Delivery Room Air Room Air Room Air Room Air 09/01/19 09/01/19 09/01/19 09:19 09:20 09:21 Pulse 90 90 90 B/P (MAP) 165/93 165/93 165/93 Intake and Output 08/31/19 08/31/19 09/01/19 15:00 23:00 07:00 Intake Total 480 ml 240 ml 60 ml Output Total 0 ml Balance 480 ml 240 ml 60 ml MAXIME ALMODOVAR MD Sep 01, 2019 10:43
[2019-09-01 11:00] VITALS: BP 183/96
[2019-09-01 11:58] LABS: CHOLESTEROL/HDL RATIO 2.2
--- NOTE | 2019-09-01 13:18 | PDOC3 ---
Discharge Summary Date of Admission: Aug 30, 2019 Date of Discharge: Sep 01, 2019 Follow-Up: 1-2 days Admitting Diagnosis comment: DISCHARGE DX ACUTE ALTERED MENTATION, RESOLVED acute metabolic encephalopathy possible uti No acute infarct, acute hemorrhage, mass, or hydrocephalus. Mild CEREBRAL atrophy and chronic microangiopathic white matter change. ON CT HEAD OBESITY hx schizophrenia, possible acute psychosis 08/31// much more alert, oriented after holding psych meds x 24 hrs, PAT team consulted, ate all of breakfast, cooperative, knows correct day was on geodon 120mg po q hs seems like a high dose 09/01 back to baseline, to see psychiatry tomorrow or THURSDAY// D/W JOÃO IN ROOM ADMIT NEUROLOGY CONSULT NEUROCHECKS Q 4 HRS ADMIT 2 MN TELE EEG uds blood culture urine culture dvt prophylaxis hold geodon and sedating meds IV CIPRO 200MG BID, D/C follows with [facility] 34 min pt exam, chart review, D/C PLANNING > 50% of time spent with exam, chart review, pt care coordination Vitals Vitals Vital Signs Date Time Temp Pulse Resp B/P (MAP) Pulse Ox O2 Delivery O2 Flow Rate FiO2 09/01/19 09:21 90 165/93 09/01/19 07:00 97.4 18 97 Room Air 97.4 Physical Exam General: Alert, Oriented X3, Cooperative, No acute distress Heart: Regular rate, Normal S1, Normal S2, No murmurs Lungs: Clear Abdomen: Normal bowel sounds, Soft Extremities: No clubbing, No cyanosis, No edema Skin: No significant lesion Labs LABS URINE CULTURE Final Final report URINE CULTURE RES 1 Final Comment Beta hemolytic Streptococcus, group B Greater than 100,000 colony forming units per mL Penicillin and ampicillin are drugs of choice for treatment of beta-hemolytic streptococcal infections. Susceptibility testing of penicillins and other beta-lactam agents approved by the FDA for treatment of beta-hemolytic streptococcal infections need not be performed routinely because nonsusceptible isolates are extremely rare in any beta-hemolytic streptococcus and have not been reported for Streptococcus pyogenes (group A). (CLSI) URINE CULTURE RES 2 Final Comment Mixed urogenital eric 10,000-25,000 colony forming units per mL [facility]formed at: [facility] [address], [place], [place] [id number] Critical Care Unit Manager: THANG Hamilton MD, Phone: [phone] FINAL DIAGNOSIS Problems Medical Problems: (1) Ischemic stroke Status: Acute Brief Hospital Course Ms. Willett is a 58 old [sex] who presented with [ ACUTE ENCEPHALOPATHY/ UTI] CONDITION AT DISCHARGE: Improved Discharge Medications Current Medications Ondansetron HCl (Zofran) 4 mg PRN Q8HRS PRN IV NAUSEA/VOMITING 1ST CHOICE; Start 08/30/19 at 06:00; Stop 08/31/19 at 05:59; Status DC Sodium Chloride 1,000 ml @ 125 mls/hr Q8H IV Last administered on 08/31/19at 02:03; Start 08/30/19 at 06:00; Stop 08/31/19 at 05:59; Status DC Acetaminophen (Tylenol) 650 mg PRN Q4HRS PRN PO FEVER; Start 08/30/19 at 06:00; Stop 08/31/19 at 05:59; Status DC Amlodipine Besylate (Norvasc) 10 mg DAILY PO Last administered on 09/01/19at 09:21; Start 08/30/19 at 13:30 Aspirin (Lauren Aspirin) 325 mg DAILY PO Last administered on 09/01/19at 09:21; Start 08/30/19 at 14:00 Atorvastatin Calcium (Lipitor) 20 mg HS PO Last administered on 08/30/19at 21:23; Start 08/30/19 at 21:00 Bupropion HCl (Wellbutrin Xl) 150 mg HS PO Last administered on 08/30/19at 21:22; Start 08/30/19 at 21:00 Carvedilol (Coreg) 6.25 mg BIDWMEALS PO Last administered on 09/01/19at 09:19; Start 08/30/19 at 17:00 Ziprasidone (Geodon) 20 mg HS PO Last administered on 08/30/19 21:22; Start 08/30/19 at 21:00 Calcium Carbonate/ Glycine (Oscal) 500 mg DAILY PO Last administered on 09/01/19 09:28; Start 08/30/19 at 14:00 Fish Oil (Fish Oil) 1,000 mg TID PO Last administered on 09/01/19 09:21; Start 08/30/19 at 14:00 Non-Formulary Medication (Fish Oil/Dha/ Epa (Fish Oil 1,200 Mg Fish Oil)) 2 each DAILY PO ; Start 08/31/19 at 09:00; Stop 08/30/19 at 12:52; Status DC Losartan Potassium (Cozaar) 100 mg DAILY PO Last administered on 09/01/19 09:20; Start 08/30/19 at 14:00 Multivitamins (Thera M Plus) 1 tab DAILY PO Last administered on 09/01/19 09:20; Start 08/30/19 at 14:00 Vitamin E (Vitamin E.) 400 unit DAILY PO Last administered on 09/01/19 09:20; Start 08/30/19 at 14:00 Polysaccharide Iron Complex (Niferex 150) 150 mg DAILY PO Last administered on 09/01/19 09:19; Start 08/30/19 at 14:00 Ciprofloxacin/ Dextrose 100 ml @ 100 mls/hr Q12HR IV Last administered on at 10:06; Start 08/30/19 at 13:00; Stop 08/31/19 at 16:24; Status DC Potassium Chloride (Klor-Con) 40 meq 1X ONCE PO Last administered on 08/30/19at 15:27; Start 08/30/19 at 13:00; Stop 08/30/19 at 13:01; Status DC Potassium Chloride (Klor-Con) 20 meq DAILYWBKFT PO Last administered on 09/01/19 09:21; Start 08/31/19 at 08:00 Lactobacillus Rhamnosus (Culturelle) 1 cap BID PO Last administered on 09/01/19 09:20; Start 08/30/19 at 21:00 Nicotine (Nicoderm Cq 21mg) 1 patch DAILY TD ; Start 08/30/19 at 19:00; Stop 08/30/19 at 18:44; Status DC Nicotine (Nicoderm Cq 21mg) 1 patch DAILY TD Last administered on 09/01/19at 09:22; Start 08/31/19 at 09:00 Ciprofloxacin (Cipro) 250 mg BID PO Last administered on 09/01/19at 09:19; Start 08/31/19 at 21:00 Lorazepam (Ativan Inj) 1 mg PRN Q6HRS PRN IM ANXIETY / AGITATION; Start 09/01/19 at 00:30 Lorazepam (Ativan) 1 mg PRN Q6HRS PRN PO ANXIETY / AGITATION; Start 09/01/19 at 00:30 Active Scripts Active Aspirin 325 Mg Tablet 1 Tab PO DAILY Reported Amitriptyline Hcl 25 Mg Tablet 1 Tab PO QHS Risperidone 0.5 Mg Tablet 1 Tab PO DAILY Carvedilol 6.25 Mg Tablet 6.25 Mg PO BID Fish Oil 1,200 Mg Fish Oil (Fish Oil/Dha/Epa) 1 Each Capsule 1 Each PO TID Haloperidol 5 Mg Tablet 3 Tab PO DAILY Wellbutrin Xl (Bupropion Hcl) 150 Mg Tab.er.24h 1 Tab PO HS Ziprasidone Hcl 20 Mg Capsule 20 Mg PO HS Ziprasidone Hcl 60 Mg Capsule 120 Mg PO HS Trazodone Hcl 100 Mg Tablet 150 Mg PO HS Fish Oil 1,200 Mg Fish Oil (Fish Oil/Dha/Epa) 1 Each Capsule 2 Each PO DAILY Centrum Silver Tablet (Multivits-Min/Fa/Lycopene/Lut) 1 Each Tablet 1 Each PO DAILY Alprazolam 0.25 Mg Tablet 3 Tab PO TID Ferrous Sulfate 325 Mg Tablet.dr 325 Mg PO Atorvastatin Calcium 20 Mg Tablet 20 Mg PO HS Calcium (Calcium Carbonate) 600 Mg Tablet 600 Mg PO DAILY Metformin Hcl 500 Mg Tablet 2 Tab PO DAILY Losartan Potassium 100 Mg Tablet 100 Mg PO DAILY Vitamin E (Vitamin E Mixed) 400 Unit Capsule 400 Unit PO DAILY Amlodipine Besylate 10 Mg Tablet 10 Mg PO DAILY Vital Signs Vital Signs Date Time Temp Pulse Resp B/P (MAP) Pulse Ox O2 Delivery O2 Flow Rate FiO2 09/01/19 11:00 98.4 82 18 183/96 (125) 96 Room Air 98.4 Labs Laboratory Tests Test 08/31/19 04:29 White Blood Count 12.3 x10^3/uL (4.0-11.0) Red Blood Count 4.93 x10^6/uL (3.50-5.40) Hemoglobin 14.8 g/dL (12.0-15.5) Hematocrit 44.2 % (36.0-47.0) Mean Corpuscular Volume 90 fL (79-100) Mean Corpuscular Hemoglobin 30 pg (25-35) Mean Corpuscular Hemoglobin Concent 34 g/dL (31-37) Red Cell Distribution Width 14.7 % (11.5-14.5) Platelet Count 376 x10^3/uL (140-400) Neutrophils (%) (Auto) 78 % (31-73) Lymphocytes (%) (Auto) 12 % (24-48) Monocytes (%) (Auto) 9 % (0-9) Eosinophils (%) (Auto) 1 % (0-3) Basophils (%) (Auto) 1 % (0-3) Neutrophils # (Auto) 9.6 x10^3/uL (1.8-7.7) Lymphocytes # (Auto) 1.4 x10^3/uL (1.0-4.8) Monocytes # (Auto) 1.1 x10^3/uL (0.0-1.1) Eosinophils # (Auto) 0.1 x10^3/uL (0.0-0.7) Basophils # (Auto) 0.1 x10^3/uL (0.0-0.2) Sodium Level 138 mmol/L (136-145) Potassium Level 3.6 mmol/L (3.5-5.1) Chloride Level 102 mmol/L (98-107) Carbon Dioxide Level 27 mmol/L (21-32) Anion Gap 9 (6-14) Blood Urea Nitrogen 6 mg/dL (7-20) Creatinine 1.0 mg/dL (0.6-1.0) Estimated GFR (Cockcroft-Gault) 56.7 BUN/Creatinine Ratio 6 (6-20) Glucose Level 130 mg/dL (70-99) Calcium Level 9.3 mg/dL (8.5-10.1) Total Bilirubin 0.5 mg/dL (0.2-1.0) Aspartate Amino Transf (AST/SGOT) 15 U/L (15-37) Alanine Aminotransferase (ALT/SGPT) 14 U/L (14-59) Alkaline Phosphatase 104 U/L (46-116) Total Protein 6.5 g/dL (6.4-8.2) Albumin 2.7 g/dL (3.4-5.0) Albumin/Globulin Ratio 0.7 (1.0-1.7) Triglycerides Level 77 mg/dL (0-150) Cholesterol Level 110 mg/dL (0-200) LDL Cholesterol, Calculated 44 mg/dL (0-100) VLDL Cholesterol, Calculated 15 mg/dL (0-40) Non-HDL Cholesterol Calculated 59 mg/dL (0-129) HDL Cholesterol 51 mg/dL (40-60) Cholesterol/HDL Ratio 2.2 Allergies Allergies Coded Allergies Type Severity Reaction Last Updated Verified Penicillins Allergy Intermediate 11/05/16 Yes doxycycline Allergy Intermediate 11/05/16 Yes tetracycline Allergy Intermediate 11/05/16 Yes Disposition/Orders: D/C to Home Patient Instructions D/C PLANNING 34 MIN MAXIME ALMODOVAR MD Sep 01, 2019 13:18
[2019-09-01] MEDS ORDERED: AZIT250T6 PO (13:27)
[2019-09-01] MEDS ORDERED: LACT1CAP19 PO (13:27)
--- NOTE | 2019-09-01 13:27 | DISCH ---
DISCHARGE INSTRUCTIONS Condition on Discharge Condition on Discharge: Stable Activity After Discharge Activity Instructions for Disc: Activity as tolerated Lifting Instructions after Dis: No heavy lifting, No pulling or pushing Exercise Instruction after Dis: Walk 10 min, 3 x per day Driving Instructions after Dis: Do not drive Diet after Discharge Diet after Discharge: Cardiac Checks after Discharge Checks after discharge: Check blood press - daily Contacting the DRJhonatan after DC Call your doctor for: If your condition worsens Treatment/Equipment after DC Adaptive Equipment Issued: None MAIXME ALMODOVAR MD Sep 01, 2019 13:27
--- NOTE | 2019-09-01 13:38 | NUR ---
Late note: SW following pt for dc planning. Chart reviewed and discussed with RN. Pt live at home with family and family had concerns regarding pt's mental status. Pt seen by PAT team on 08/31/19 and does not have acute psychiatric problems (NO SI, NO HI). Pt is well connected with [facility] and had seen her Psychiatrist on 08/29. Pt also has an appointment with her ict development manager on 09/02 and has already filled up her Rx at [facility] pharmacy. Pt is compliant with services and no other needs noted at this time.
--- NOTE | 2019-09-01 13:56 | NUR ---
Discharge instructions explained to patient with daughter at the bedside. Patient refused to sign entire name stating "I just don't want to sign." Explained to patient that all her signature says is that I went over her discharge instructions and new medications with her and that she received a copy. I questioned patient if there was something she was concerned about going home and she states she doesn't have any concerns. Patient reiterated, "I'm going home. I just don't want to sign."
--- NOTE | 2019-09-01 14:50 | NUR ---
Daughter called nurse to room stating she is concerned about taking her mother home because she is not acting like she is going to be able to take care of herself. She states that normally she is able to drive, take care of herself at home and fix her own meals but at this level of behavior she is not going to be able to safely care for herself. Informed Dr. Huffman about patient's daughter's concern and he states that she is medically cleared and has an appointment with her psychiatrist tomorrow and it may be needed for someone to stay at the home with the patient until tomorrow. Senior Peoples[employer] Developer notified of concern about patient not being able to care for herself and delinquency prevention social worker states that the patient does not qualify for rehab. Patient refusing to get in the wheel chair but states that she is going home. She walks around the room then sits in the chair. Other RN's assisting with walking patient to the front lobby where daughter is waiting and patient follows along with them then walks past the elevator then back down the hallway and stands against the wall and not making eye contact. Patient states she wants to go to her daughter's house but the daughter won't let her dogs come with her. Patient finally walks to the front lobby with charge poster.
== END 2019-09-01 15:42 | disposition home or self-care (01) | DRG 689 ==
LOC: ER 04:24 → 6 SOUTH 05:52
PROVIDERS: ADMIT Internal Medicine; ATTEND Internal Medicine
DX: N39.0 Urinary tract infection, site not specified (principal); G93.41 Metabolic encephalopathy; F23 Brief psychotic disorder; F32.9 Major depressive disorder, single episode, unspecified; E11.9 Type 2 diabetes mellitus without complications; E78.00 Pure hypercholesterolemia, unspecified; I11.9 Hypertensive heart disease without heart failure; F43.10 Post-traumatic stress disorder, unspecified; F17.210 Nicotine dependence, cigarettes, uncomplicated; E78.5 Hyperlipidemia, unspecified; G31.9 Degenerative disease of nervous system, unspecified; M81.0 Age-related osteoporosis without current pathological fracture; E66.9 Obesity, unspecified; Z68.32 Body mass index [BMI] 32.0-32.9, adult; Z95.1 Presence of aortocoronary bypass graft; Z79.82 Long term (current) use of aspirin; Z85.41 Personal history of malignant neoplasm of cervix uteri; Z86.73 Personal history of transient ischemic attack (TIA), and cerebral infarction without residual deficits; Z88.0 Allergy status to penicillin; Z88.8 Allergy status to other drugs, medicaments and biological substances; Z82.49 Family history of ischemic heart disease and other diseases of the circulatory system
CPT/HCPCS: 36415; 70450; 70551; 71045; 80053; 80061; 80307; 81001; 82962; 83605; 83690; 83735; 84443; 84484; 85025; 87040; 87086; 93005; 93880; 95816; 99406; G0480; J0744; J7030; 92610; 99285-25; G0378

== ENCOUNTER 2021-05-20 09:01 | Emergency (ER) | payer MEDICARE ==
[~2021-05-20] VITALS: Ht 152.4 cm; Wt 64.0 kg
[~2021-05-20 09:01] MED LIST changes: +AMIT25TA PO; +AMLO-187 PO; -AMLO10TA8 PO; +AZIT250T6 PO; +BUPR150T15 PO; -CALC600T4 PO; +CALC600T60 PO; +CARV6.253 PO; +HALO5TAB PO; +LACT1CAP19 PO; +RISP0.5T62 PO; +TRAZ-123 PO; -TRAZ-86 PO
[2021-05-20 10:07] LABS: CALCIUM 8.7 mg/dL (8.5-10.1); CREATININE 1.7 mg/dL (0.6-1.0); GFR 30.6; POTASSIUM 3.2 mmol/L (3.5-5.1)
[2021-05-20 10:13] LABS: ALBUMIN 2.5 g/dL (3.4-5.0); ALBUMIN/GLOBULIN RATIO 0.7 (1.0-1.7); TOTAL BILIRUBIN 0.4 mg/dL (0.2-1.0); TOTAL PROTEIN 6.1 g/dL (6.4-8.2)
[2021-05-20 10:15] LABS: BASO % 1 % (0-3); EOS # 0.1 x10^3/uL (0.0-0.7); EOS % 1 % (0-3); HEMATOCRIT 37.2 % (36.0-47.0); HEMOGLOBIN 13.1 g/dL (12.0-15.5); LYMPH # 0.8 x10^3/uL (1.0-4.8); LYMPH % 11 % (24-48); MEAN CORPUSCULAR HEMOGLOBIN 31 pg (25-35); MEAN CORPUSCULAR HGB CONC 35 g/dL (31-37); MEAN CORPUSCULAR VOLUME 89 fL (79-100); MONO # 0.6 x10^3/uL (0.0-1.1); MONO % 8 % (0-9); NEUT # 5.8 x10^3/uL (1.8-7.7); NEUT % 79 % (31-73); PLATELET COUNT 412 x10^3/uL (140-400); RED BLOOD COUNT 4.19 x10^6/uL (3.50-5.40); RED CELL DISTRIBUTION WIDTH 14.1 % (11.5-14.5); WHITE BLOOD COUNT 7.3 x10^3/uL (4.0-11.0)
[2021-05-20] MEDS ORDERED: IV NORMAL SALINE 1000ML BAG 1,000 ML IV ONE (11:00)
[2021-05-20 11:26] LABS: BILIRUBIN,URINE NEGATIVE (NEG); CLARITY,URINE CLEAR; COLOR,URINE YELLOW; NITRITE,URINE NEGATIVE (NEG); PROTEIN,URINE >=300 mg/dL (NEG-TRACE); UROBILINOGEN,URINE 0.2 mg/dL (0.2 mg/dL)
--- NOTE | 2021-05-20 11:56 | ED.ADGEN ---
Past Medical History Past Medical History: Anxiety, Cancer, CVA, Depression, Diabetes-Type II, High Cholesterol, Hypertension, [place], Schizophrenia, Stroke, Other Additional Past Medical Histor: INVOLUNTARY MUSCLE MOVEMENT, CERVICAL CANCER, PTSD,FALLS Past Surgical History: Coronary Bypass Surgery, Other Additional Past Surgical Histo: CERVICAL CA SURG Smoking Status: Current Every Day Smoker Additional Information: 2 PPD Alcohol Use: None Drug Use: None General Adult EDM: Chief Complaint: ABNORMAL LABS HPI: HPI: Patient is a 60-year-old female presents to the emergency room complaining of possible low sodium. Patient states that her sodium has been running low so her doctors been keeping an eye on it. She had lab work done on Thursday and her doctor called her today and told her she needed to come to the emergency room because her sodium was 117. She states that she has been feeling fine and she has no complaints today. She did have a fall a couple of days ago that she admits to and asked. She states that she has falls often. Review of Systems: Review of Systems: Complete ROS is negative unless otherwise documented in HPI Current Medications: Current Medications Medications (Trade) Dose Ordered Sig/Promise Start Time Stop Time Status Last Admin Dose Admin Sodium Chloride 1,000 ml @ 1,000 mls/hr 1X ONCE 05/20/21 11:00 05/20/21 11:59 DC 05/20/21 11:29 1,000 MLS/HR Allergies: Allergies: Allergies Coded Allergies Type Severity Reaction Last Updated Verified Penicillins Allergy Intermediate 11/05/16 Yes doxycycline Adverse Reaction Intermediate HEADACHE 05/20/21 Yes tetracycline Adverse Reaction Intermediate HEADACHE 05/20/21 Yes Physical Exam: PE: General: Awake, alert, NAD. Well Nourished, well hydrated. Cooperative HEENT: Atraumatic, EOMI, PERRL, airway patent, moist oral mucosa Neck: Supple, trachea midline Respiratory: CTA bilaterally, normal effort, no wheezing/crackles CV: RRR, no murmur, cap refill <2 GI: Soft, nondistended, nontender, no masses MSK: No obvious deformities, full range of motion of all extremities Skin: Warm, dry, skin tear on right hand, bruise on left elbow Neuro: A&O x3, speech NL, sensory and motor grossly intact, no focal deficits Psych: Normal affect, normal mood, not suicidal or homicidal Current Patient Data: Labs: Laboratory Tests Test 05/20/21 09:41 05/20/21 10:40 White Blood Count 7.3 x10^3/uL (4.0-11.0) Red Blood Count 4.19 x10^6/uL (3.50-5.40) Hemoglobin 13.1 g/dL (12.0-15.5) Hematocrit 37.2 % (36.0-47.0) Mean Corpuscular Volume 89 fL (79-100) Mean Corpuscular Hemoglobin 31 pg (25-35) Mean Corpuscular Hemoglobin Concent 35 g/dL (31-37) Red Cell Distribution Width 14.1 % (11.5-14.5) Platelet Count 412 x10^3/uL (140-400) H Neutrophils (%) (Auto) 79 % (31-73) H Lymphocytes (%) (Auto) 11 % (24-48) L Monocytes (%) (Auto) 8 % (0-9) Eosinophils (%) (Auto) 1 % (0-3) Basophils (%) (Auto) 1 % (0-3) Neutrophils # (Auto) 5.8 x10^3/uL (1.8-7.7) Lymphocytes # (Auto) 0.8 x10^3/uL (1.0-4.8) L Monocytes # (Auto) 0.6 x10^3/uL (0.0-1.1) Eosinophils # (Auto) 0.1 x10^3/uL (0.0-0.7) Basophils # (Auto) 0.0 x10^3/uL (0.0-0.2) Sodium Level 128 mmol/L (136-145) L Potassium Level 3.2 mmol/L (3.5-5.1) L Chloride Level 91 mmol/L (98-107) L Carbon Dioxide Level 31 mmol/L (21-32) Anion Gap 6 (6-14) Blood Urea Nitrogen 5 mg/dL (7-20) L Creatinine 1.7 mg/dL (0.6-1.0) H Estimated GFR (Cockcroft-Gault) 30.6 BUN/Creatinine Ratio 3 (6-20) L Glucose Level 139 mg/dL (70-99) H Calcium Level 8.7 mg/dL (8.5-10.1) Total Bilirubin 0.4 mg/dL (0.2-1.0) Aspartate Amino Transferase (AST) 20 U/L (15-37) Alanine Aminotransferase (ALT) 22 U/L (14-59) Alkaline Phosphatase 196 U/L (46-116) H Total Protein 6.1 g/dL (6.4-8.2) L Albumin 2.5 g/dL (3.4-5.0) L Albumin/Globulin Ratio 0.7 (1.0-1.7) L Urine Collection Type Unknown Urine Color Yellow Urine Clarity Clear Urine pH 7.0 (<5.0-8.0) Urine Specific [place] <=1.005 (1.000-1.030) Urine Protein >=300 mg/dL (NEG-TRACE) Urine Glucose (UA) Negative mg/dL (NEG) Urine Ketones (Stick) Negative mg/dL (NEG) Urine Blood Small (NEG) Urine Nitrite Negative (NEG) Urine Bilirubin Negative (NEG) Urine Urobilinogen Dipstick 0.2 mg/dL (0.2 mg/dL) Urine Leukocyte Esterase Trace (NEG) Urine RBC 0 /HPF (0-2) Urine WBC Occ /HPF (0-4) Urine Squamous Epithelial Cells Few /LPF Urine Bacteria 0 /HPF (0-FEW) Laboratory Tests 05/20/21 09:41 Laboratory Tests 05/20/21 09:41 Vital Signs: Vital Signs Date Time Temp Pulse Resp B/P (MAP) Pulse Ox O2 Delivery O2 Flow Rate FiO2 05/20/21 09:06 97.8 78 18 230/93 (138) 94 Room Air 97.8 EKG: EKG: [] Heart Score: C/O Chest Pain: N/A Risk Factors: Risk Factors: DM, Current or recent (<one month) smoker, HTN, HLP, family history of CAD, obesity. Risk Scores: Score 0 - 3: 2.5% MACE over next 6 weeks - Discharge Home Score 4 - 6: 20.3% MACE over next 6 weeks - Admit for Clinical Observation Score 7 - 10: 72.7% MACE over next 6 weeks - Early Invasive Strategies Radiology/Procedures: Radiology/Procedures: [] Course & Med Decision Making: Course & Med Decision Making Pertinent Labs and Imaging studies reviewed. (See chart for details) Patient is a 60-year-old female presents to the emergency room with possible h yponatremia. Patient denies any complaints. She states she has not had any dizziness, seizures, confusion. She did have a fall 2 days ago, but states that it is common for her to have falls. Blood work was repeated and patient sodium is 128. She will be given a liter of fluid. Patient would really like to go home. We will have her follow-up with her primary care physician. Patient's test results and vitals while in the ED were fully reviewed and discussed with the patient. Patient is stable and at this time does not need admission to the hospital. We have discussed strict return precautions and the importance of following up with their Primary Care Physician. Patient stated understanding and was given an opportunity to ask any questions. Patient is in agreement with plan. Carissa Disclaimer: Carissa Disclaimer: This electronic medical record was generated, in whole or in part, using a voice recognition dictation system. Departure Departure Impression: Primary Impression: Hyponatremia Disposition: HOME / SELF CARE / HOMELESS Condition: STABLE Referrals: UNKNOWN PCP NAME (PCP) Patient Instructions: Hyponatremia SUHAS WEST MD May 20, 2021 11:56
[2021-05-20 12:15] LABS: BACTERIA,URINE 0 /HPF (0-FEW); RBC,URINE 0 /HPF (0-2); WBC,URINE OCC /HPF (0-4)
[2021-05-20 12:40] VITALS: BP 205/86
[2021-05-20 23:08] LABS: SODIUM, URINE 21 mmol/L (Not Estab.); UR POTASSIUM 7.8 mmol/L (Not Estab.)
== END 2021-05-20 13:23 | disposition home or self-care (01) ==
LOC: ER 09:01
DX: E87.1 Hypo-osmolality and hyponatremia (principal); E11.9 Type 2 diabetes mellitus without complications; E78.00 Pure hypercholesterolemia, unspecified; I10 Essential (primary) hypertension; I25.2 Old myocardial infarction; F20.9 Schizophrenia, unspecified; Z86.73 Personal history of transient ischemic attack (TIA), and cerebral infarction without residual deficits; F17.200 Nicotine dependence, unspecified, uncomplicated; F41.9 Anxiety disorder, unspecified; F32.9 Major depressive disorder, single episode, unspecified; Z95.1 Presence of aortocoronary bypass graft; Z88.0 Allergy status to penicillin; Z88.1 Allergy status to other antibiotic agents
CPT/HCPCS: 80053; 81001; 82436; 83930; 83935; 84133; 84300; 85025; 96360; 96361; 99285; J7030